=== PATIENT | male | born 1940 | race Caucasian/White ===

== ENCOUNTER 2017-01-09 12:59 | Observation (INO) ==
--- NOTE | 2017-01-09 13:31 | Emergency Department Note ---
Disposition Clinical Impression: Congestive heart failure Qualifiers: Congestive heart failure type: unspecified congestive heart failure type Congestive heart failure chronicity: acute on chronic Qualified Code(s): I50.9 - Heart failure, unspecified Disposition: Admitted As Inpatient Condition: Good Referrals: Marlon Mott MD [Primary Care Provider] - Forms: ED Satisfaction Letter SOB HPI - General Chief Complaint: ED Shortness of Breath/Dyspnea Stated Complaint: per , "bad breathing" Time Seen by Provider: 01/09/17 13:01 Source: patient Mode of arrival: private vehicle Limitations: no limitations Nursing Notes Reviewed: Yes Vital Signs Reviewed: Yes - History of Present Illness 76-year-old male presents for evaluation of shortness of breath. Patient states that he was unable to sleep last night because when lying down he was unable to breathe. Patient was seen in the emergency department yesterday complaining of anxiety and shortness of breath. Patient states that he has had leg swelling. He also has a history of kidney disease. He denies any chest pain. States no cough. Denies any fever or chills. He has prior history of congestive heart failure, mitral valve replacement, atrial fibrillation, cardiomyopathy and is scheduled for a pacemaker next week. - Related Data Home Medications Medication Instructions Recorded Confirmed Finasteride [Proscar] 5 mg PO DAILY 12/03/14 01/08/17 Furosemide [Lasix] 80 mg PO DAILY 12/03/14 01/08/17 Potassium Citrate [Urocit-K] 20 meq PO DAILY 12/03/14 01/08/17 Tamsulosin [Flomax] 0.4 mg PO DAILY 12/03/14 01/08/17 Ferrous Gluconate 325 mg PO DAILY 01/17/15 01/08/17 Ipratropium/Albuterol Sulfate 4 gm IH PRN PRN 10/30/15 01/08/17 [Combivent Respimat Inhal [place]] Warfarin [Coumadin] 3 mg PO DAILY 03/12/16 01/08/17 Montelukast [Singulair] 10 mg PO DAILY 12/27/16 01/08/17 Ergocalciferol (VITAMIN D2) 50,000 unit PO QWEEK 12/28/16 01/08/17 [Vitamin D2] Metoprolol XL (24 HR) Succ [Toprol 50 mg PO DAILY PRN 12/28/16 01/08/17 Xl] traZODone [TraZODone] 50 mg PO HS 12/28/16 01/08/17 Previous Rx's Medication Instructions Recorded Nitroglycerin 0.4 mg SL Q5MIN PRN #20 tab.subl 08/02/15 Aspirin Enteric Coated [Aspirin EC] 81 mg PO DAILY tablet. 12/29/16 Cholecalciferol (D-3) [Vitamin D] 1,000 unit PO QWEEK tablet 12/29/16 Allergies Allergy/AdvReac Type Severity Reaction Status Date / Time Amoxicillin Allergy Difficulty Verified 01/08/17 23:25 Breathing metronidazole [From Flagyl] Allergy Rash Verified 01/08/17 23:25 sulfamethoxazole Allergy Rash Verified 01/08/17 23:25 [From Bactrim] trimethoprim [From Bactrim] Allergy Rash Verified 01/08/17 23:25 Review of Systems: Constitutional: [Negative for fever and chills.] HENT: [Negative for congestion.] Eyes: [Negative for discharge.] Respiratory: See history of present illness Cardiovascular: See history of present illness Gastrointestinal: [Negative for nausea, vomiting, abdominal pain and diarrhea.] Endocrine: [Negative for excessive thirst,urination] Genitourinary: [Negative for dysuria and frequency.] Musculoskeletal: [Negative for myalgias and arthralgias.] Skin: [Negative for rash.] Neurological: [Negative for dizziness, localized weakness and headaches.] Psychiatric/Behavioral: [Negative for nervous/anxious.] All other systems reviewed and are negative. Past Medical History - Past Medical History Attestation: Yes The following information was validated with the patient. Source: patient Medical history: Reports: aortic aneurysm (Thoracic), arthritis, atrial fibrillation (Paroxysmal), cardiomyopathy, CHF, COPD, GERD, hyperlipidemia, hypertension, kidney stones, osteoporosis, peripheral artery disease, renal disease, thyroid disease, valvular heart disease, other Surgical history: Reports: heart valve replacement, herniorrhaphy, vascular surgery Psychiatric history: Reports: anxiety - Social History Smoking Status: Never smoker Smokeless Tobacco Status: No Alcohol use: Reports: none Drug use: Reports: none Physical Exam Constitutional: Patient is drowsy, elderly, mildly tachypneic and cooperative. . The patient appears, [nontoxic], and [does not appear ill]. HENT: Head: Normocephalic and atraumatic. Right Ear: External ear normal. Left Ear: External ear normal. Nose: Nose normal. Mouth/Throat: Oropharynx is clear and mucous membranes show [good hydration.] Eyes: Conjunctivae and EOM are normal. Pupils are equal, round, and reactive to light. Right eye exhibits [no] discharge. Left eye exhibits [no] discharge. Neck: Trachea is midline, normal range of motion and [phonation normal]. Neck supple. Cardiovascular: [Regular rhythm], S1 normal, S2 normal, normal heart sounds and intact distal pulses. Exam reveals no gallop and no friction rub. No murmur heard. [Capillary refill is brisk.] [Peripheral pulses are 2+] Pulmonary/Chest: Effort increased No stridor. Mild tachypnea. [No] respiratory distress. There are decreased breath sounds. Breath sounds are difficult to hear with no obvious rales rhonchi or wheezes appreciated Abdominal: Soft. [Bowel sounds are normal]. There exhibits [no] distension and [no] mass. There is no hepatosplenomegaly. There is [no tenderness], [no] CVA tenderness. There is [no rigidity, no rebound, no guarding]. Musculoskeletal: Normal range of motion of uninvolved extremities. There exhibits 3+ pitting edema. [ ] Neurological: Patient is alert. Patient displays no atrophy and no tremor. No cranial nerve deficit and exhibits normal muscle tone. Coordination normal grossly. Skin: Skin is warm and dry. No erythema. No rash noted. Psychiatric: Patient has a normal mood and affect. 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 Patient was discussed with Dr. Luke, hospitalist, who will accept the patient here at [facility] with Lasix every 6 hours overnight. Vital Signs Temperature 97.8 F 01/09/17 13:05 Pulse Rate 86 01/09/17 13:05 Respiratory Rate 18 01/09/17 13:05 Blood Pressure 110/97 01/09/17 13:05 O2 Sat by Pulse Oximetry 100 01/09/17 13:05 Temperature 97.8 F 01/09/17 13:05 Pulse Rate 86 01/09/17 13:05 Respiratory Rate 18 01/09/17 13:05 Blood Pressure 110/97 01/09/17 13:05 O2 Sat by Pulse Oximetry 100 10/19/17 13:05 Oxygen Delivery Oxygen Delivery Room Air Shortness of Breath/Dyspnea - Differential Diagnosis Likely: congestive heart failure - Lab Data Lab results reviewed: Yes I reviewed the patient's lab results. Result diagrams: 01/09/17 13:28 01/09/17 13:28 Lab Results 01/09/17 01/09/17 01/09/17 Range/Units 13:28 13:28 13:28 WBC 7.4 (4.3-11.1) K/mcL RBC 4.27 (4.19-5.50) M/mcL Hgb 11.4 L (12.9-16.9) g/dL Hct 35.9 L (37.5-50.1) % MCV 84.1 (83.0-100.0) fL MCH 26.7 L (28.0-33.3) pg MCHC 31.8 (31.6-35.5) g/dL RDW 16.6 H (11.5-14.5) % Plt Count 178 (140-400) K/mcL MPV 11.7 (9.4-12.4) fL Immature Gran % 0.5 (0-4) % Seg Neutrophils % 76.4 % Lymphocytes % 13.5 % Monocytes % 8.4 % Eosinophils % 0.8 % Basophils % 0.4 % Neutrophils # 5.7 (1.6-8.9) K/mcL Lymphocytes # 1.0 (0.6-4.6) K/mcL Monocytes # 0.6 (0.0-1.3) K/mcL Eosinophils # 0.1 (0.0-0.6) K/mcL Basophils # 0.0 (0.0-0.2) K/mcL ABG pH (7.32-7.45) pH Units ABG pCO2 (35-45) mmHg ABG pO2 (85-104) mmHg ABG HCO3 (21-27) mEq/L ABG Total CO2 (20-26) mEq/L ABG O2 Saturation (95-98) % ABG Base Excess (-2 to 3) mEq/L Sodium 141 (136-145) mEq/L Potassium 4.2 (3.5-4.5) mEq/L Chloride 104 (98-109) mEq/L Carbon Dioxide 29 (19-29) mEq/L BUN 46 H (8-26) mg/dL Creatinine 2.58 H (0.72-1.25) mg/dL Est GFR ( Amer) 29 L (> 60) Est GFR (Non-Af Amer) 24 L (> 60) BUN/Creatinine Ratio 18 (6-26) Glucose 96 (70-99) mg/dL Calculated Osmolality 304 H (280-300) Lactic Acid (0.5-2.2) mmol/L Calcium 9.2 (8.6-10.8) mg/dL Total Bilirubin 0.6 (0.2-1.2) mg/dL Direct Bilirubin 0.3 (0.0-0.5) mg/dL Indirect Bilirubin 0.3 (0.0-1.2) mg/dL AST 19 (5-34) Units/L ALT 14 (0-55) Units/L Alkaline Phosphatase 102 (38-126) Units/L Troponin I 0.05 H* (0-0.03) ng/mL B-Natriuretic Peptide (0-100) pg/mL Serum Total Protein 6.6 (6.0-8.3) g/dL Albumin 3.1 L (3.5-5.0) g/dL Globulin 3.5 (2.4-3.5) g/dL Albumin/Globulin Ratio 0.9 L (1.1-2.2) 01/09/17 01/09/17 01/09/17 Range/Units 13:28 14:06 14:10 WBC (4.3-11.1) K/mcL RBC (4.19-5.50) M/mcL Hgb (12.9-16.9) g/dL Hct (37.5-50.1) % MCV (83.0-100.0) fL MCH (28.0-33.3) pg MCHC (31.6-35.5) g/dL RDW (11.5-14.5) % Plt Count (140-400) K/mcL MPV (9.4-12.4) fL Immature Gran % (0-4) % Seg Neutrophils % % Lymphocytes % % Monocytes % % Eosinophils % % Basophils % % Neutrophils # (1.6-8.9) K/mcL Lymphocytes # (0.6-4.6) K/mcL Monocytes # (0.0-1.3) K/mcL Eosinophils # (0.0-0.6) K/mcL Basophils # (0.0-0.2) K/mcL ABG pH 7.44 (7.32-7.45) pH Units ABG pCO2 43 (35-45) mmHg ABG pO2 124 H (85-104) mmHg ABG HCO3 29 H (21-27) mEq/L ABG Total CO2 31 H (20-26) mEq/L ABG O2 Saturation 99 H (95-98) % ABG Base Excess 4 H (-2 to 3) mEq/L Sodium (136-145) mEq/L Potassium (3.5-4.5) mEq/L Chloride (98-109) mEq/L Carbon Dioxide (19-29) mEq/L BUN (8-26) mg/dL Creatinine (0.72-1.25) mg/dL Est GFR ( Amer) (> 60) Est GFR (Non-Af Amer) (> 60) BUN/Creatinine Ratio (6-26) Glucose (70-99) mg/dL Calculated Osmolality (280-300) Lactic Acid 0.8 (0.5-2.2) mmol/L Calcium (8.6-10.8) mg/dL Total Bilirubin (0.2-1.2) mg/dL Direct Bilirubin (0.0-0.5) mg/dL Indirect Bilirubin (0.0-1.2) mg/dL AST (5-34) Units/L ALT (0-55) Units/L Alkaline Phosphatase (38-126) Units/L Troponin I (0-0.03) ng/mL B-Natriuretic Peptide 3824 H (0-100) pg/mL Serum Total Protein (6.0-8.3) g/dL Albumin (3.5-5.0) g/dL Globulin (2.4-3.5) g/dL Albumin/Globulin Ratio (1.1-2.2) - Radiology Data Radiology results reviewed: Yes I reviewed the patient's radiology results. - EKG Data EKG attestation: Yes I reviewed and interpreted this EKG. EKG results narrative: I have contemporaneously read the EKG which has the following findings: Rhythm atrial fibrillation Rate 91 [place] left Ectopy none Impression atrial fibrillation with controlled ventricular response, nonspecific ST segment changes
[2017-01-09 13:53] LABS: Basophils % 0.4 %; Eosinophils # 0.1 K/mcL (0.0-0.6); Eosinophils % 0.8 %; Hematocrit 35.9 % (37.5-50.1); Hemoglobin 11.4 g/dL (12.9-16.9); Immature Granulocytes % 0.5 % (0-4); Lymphocytes % 13.5 %; Mean Corpuscular HGB Conc 31.8 g/dL (31.6-35.5); Mean Corpuscular Hemoglobin 26.7 pg (28.0-33.3); Mean Corpuscular Volume 84.1 fL (83.0-100.0); Mean Platelet Volume 11.7 fL (9.4-12.4); Monocytes # 0.6 K/mcL (0.0-1.3); Monocytes % 8.4 %; Neutrophils # 5.7 K/mcL (1.6-8.9); Platelet Count 178 K/mcL (140-400); Red Blood Count 4.27 M/mcL (4.19-5.50); Red Cell Distribution Width 16.6 % (11.5-14.5); Segmented Neutrophils % 76.4 %
[2017-01-09 14:08] LABS: Albumin 3.1 g/dL (3.5-5.0); Albumin/Globulin Ratio 0.9 (1.1-2.2); Bilirubin,Direct 0.3 mg/dL (0.0-0.5); Bilirubin,Indirect 0.3 mg/dL (0.0-1.2); Bilirubin,Total 0.6 mg/dL (0.2-1.2); Calcium 9.2 mg/dL (8.6-10.8); Globulin 3.5 g/dL (2.4-3.5); Potassium 4.2 mEq/L (3.5-4.5); Total Protein 6.6 g/dL (6.0-8.3)
[2017-01-09 14:24] LABS: ABG Base Excess 4 mEq/L (-2 to 3); ABG HCO3 29 mEq/L (21-27); ABG Oxygen Saturation 99 % (95-98); ABG PCO2 43 mmHg (35-45); ABG PH 7.44 pH Units (7.32-7.45); ABG PO2 124 mmHg (85-104); ABG TCO2 31 mEq/L (20-26)
[2017-01-09] MEDS ORDERED: Furosemide 40 MG/4 ML VIAL IVP ONE (14:27)
--- NOTE | 2017-01-09 15:48 | Electrocardiograph Report ---
[place] [id number] Test Date: 2017-01-09 Pat Name: Tarun Mitchell Department: 2000 Room: Gender: M System Support Developer: : 1940 Requested By: Tarun Soares Order Number: [id number] Reading MD: David Keen Measurements Intervals [place] Rate: 91 P: HI: 0 QRS: -74 QRSD: 130 T: 93 QT: 413 QTc: 462 Interpretive Statements ATRIAL FIBRILLATION POSSIBLE ANTERIOR MYOCARDIAL INFARCTION, OF INDETERMINATE AGE INFERIOR MYOCARDIAL INFARCTION, PROBABLY OLD Electronically Signed On 01-09-2017 15:46:46 EDT by David Keen
[2017-01-09] MEDS ORDERED: Nitroglycerin 0.4 MG TAB.SUBL SL PRN (15:55)
[2017-01-09] MEDS ORDERED: Metoprolol XL (24 HR) Succ 50 MG TAB.ER.24H PO PRN (15:55)
[2017-01-09] MEDS ORDERED: NON-FORMULARY MEDICATION 1 EACH EACH (Ipratropium/Albuterol Sulfate [Combivent Respimat In IH PRN (15:55)
[2017-01-09] MEDS ORDERED: Cholecalciferol (D-3) 1,000 UNIT TABLET PO SCH (16:00)
[2017-01-09] MEDS ORDERED: Ipratropium/Albuterol Neb 3 ML IH PRN (17:28)
[2017-01-09] MEDS: *HR* Warfarin 3 MG TABLET PO SCH (17:46)
[2017-01-09] MEDS: Furosemide 40 MG/4 ML VIAL IVP SCH (21:08)
[2017-01-09] MEDS: traZODone 50 MG TABLET PO SCH (21:08)
[2017-01-10] MEDS: Furosemide 40 MG/4 ML VIAL IVP SCH ×4 (01:59→21:04)
[2017-01-10 05:32] LABS: Basophils # 0.1 K/mcL (0.0-0.2); Basophils % 0.7 %; Eosinophils # 0.1 K/mcL (0.0-0.6); Eosinophils % 1.4 %; Hematocrit 34.9 % (37.5-50.1); Hemoglobin 11.1 g/dL (12.9-16.9); Immature Granulocytes % 0.4 % (0-4); Lymphocytes # 1.3 K/mcL (0.6-4.6); Mean Corpuscular HGB Conc 31.8 g/dL (31.6-35.5); Mean Corpuscular Hemoglobin 26.6 pg (28.0-33.3); Mean Corpuscular Volume 83.7 fL (83.0-100.0); Mean Platelet Volume 10.3 fL (9.4-12.4); Monocytes # 0.7 K/mcL (0.0-1.3); Monocytes % 9.4 %; Neutrophils # 5.2 K/mcL (1.6-8.9); Platelet Count 166 K/mcL (140-400); Red Blood Count 4.17 M/mcL (4.19-5.50); Red Cell Distribution Width 16.4 % (11.5-14.5); Segmented Neutrophils % 70.1 %
[2017-01-10 05:37] LABS: INR 2.7; Prothrombin Time 30.2 Seconds (9.4-12.1)
[2017-01-10 05:46] LABS: Calcium 9.2 mg/dL (8.6-10.8); Potassium 4.2 mEq/L (3.5-4.5)
[2017-01-10] MEDS: Aspirin Enteric Coated 81 MG Tablet PO SCH (08:06)
[2017-01-10] MEDS: *HR* Warfarin 3 MG TABLET PO SCH (08:06)
[2017-01-10] MEDS: Potassium Citrate 10 MEQ TABLET.ER PO SCH (08:06)
[2017-01-10] MEDS: Finasteride 5 MG TABLET PO SCH (08:06)
--- NOTE | 2017-01-10 13:14 | Internal Med History&Physical ---
<Zana Luke S - Last Filed: 01/10/17 13:11> Date of Encounter: 01/10/17 Time of Encounter: 13:11 Assessment and Plan (1) Systolic CHF, chronic Current visit: Yes Status: Chronic Patient came in for shortness of breath but tells me that he feels better this morning. Because of him being incontinent of urine idle hollow volume number however he has had frequent wet chocks-type dressings. (2) Atrial fibrillation Current visit: No Status: Acute Noted irregularly irregular heartbeat Qualifiers: Atrial fibrillation type: chronic Qualified Code(s): I48.2 - Chronic atrial fibrillation (3) Dyspnea Current visit: Yes Status: Acute Patient presented with shortness of breath but states he is better today. Qualifiers: Dyspnea type: orthopnea Qualified Code(s): R06.01 - Orthopnea (4) Chronic renal insufficiency Current visit: No Status: Acute Noted not sure there is much change Qualifiers: Chronic kidney disease stage: stage 3 (moderate) Qualified Code(s): N18.3 - Chronic kidney disease, stage 3 (moderate) (5) CHF (congestive heart failure), NYHA class III Current visit: No Status: Chronic Noted. As ejection fraction 10-15%. Qualifiers: Congestive heart failure type: combined Congestive heart failure chronicity : chronic Qualified Code(s): I50.42 - Chronic combined systolic (congestive) and diastolic (congestive) heart failure Internal Medicine - H&P: HPI Chief complaint: Shortness of breath Admitted From: Emergency Dept Plans for Post Hospital Care: Home History of present illness: Mr. Mitchell is a 76 year old male 4.4 hours prior to presentation the patient was unable to sleep or lie down. He is getting more short of breath so he obviously had orthopnea Past Med Surg Social Fam HX - Past Medical History Medical history: aortic aneurysm, arthritis, atrial fibrillation, cardiomyopathy , CHF (Patient was noted to have an ejection fraction of 50%.), COPD, GERD, hyperlipidemia, hypertension, kidney stones, osteoporosis, peripheral artery disease, renal disease, thyroid disease, valvular heart disease, other Psychiatric history: anxiety - Past Surgical History Surgical History: heart valve replacement, herniorrhaphy, vascular surgery - Social History Smoking Status: Never smoker Smokeless Tobacco Status: No Alcohol use: none Drug use: none - Family History Daughter Adopted: No Family Member Ethnicity: Non- Living Status: Still Living Hx Family Cardiac Disorders: No Hx Family Respiratory Disorders: No Hx Family Cancer: No Hx Family GI Disorders: No Hx Family Endocrine Disorder: No Hx Family Neuromuscular Disorders: No Hx Family Neurologic Disorders: No Hx Family HEENT Disorders: No Hx Family Autoimmune Disorders: No Mother Adopted: No Living Status: Hx Family Cardiac Disorders: No Hx Family Respiratory Disorders: No Hx Family Cancer: No Hx Family GI Disorders: Yes (bleeding ulcer) Hx Family Endocrine Disorder: No Hx Family Neuromuscular Disorders: No Hx Family Neurologic Disorders: No Hx Family HEENT Disorders: No Hx Family Autoimmune Disorders: No Father Adopted: No Living Status: Hx Family Cardiac Disorders: No Hx Family Respiratory Disorders: Yes (Emphysema) Hx Family Cancer: No Hx Family GI Disorders: No Hx Family Endocrine Disorder: No Hx Family Neuromuscular Disorders: No Hx Family Neurologic Disorders: No Hx Family HEENT Disorders: No Hx Family Autoimmune Disorders: No Sister Adopted: No Living Status: Hx Family Cardiac Disorders: No Hx Family Respiratory Disorders: Yes (pneumonia) Hx Family Cancer: No Hx Family GI Disorders: No Hx Family Endocrine Disorder: No Hx Family Neuromuscular Disorders: No Hx Family Neurologic Disorders: No Hx Family HEENT Disorders: No Hx Family Autoimmune Disorders: No Internal Medicine - H&P: Meds Finasteride [Proscar] 5 mg PO DAILY 12/03/14 [History] Furosemide [Lasix] 80 mg PO DAILY 12/03/14 [History] Potassium Citrate [Urocit-K] 20 meq PO DAILY 12/03/14 [History] Tamsulosin [Flomax] 0.4 mg PO DAILY 12/03/14 [History] Ferrous Gluconate 325 mg PO DAILY 01/17/15 [History] Nitroglycerin 0.4 mg SL Q5MIN PRN #20 tab.subl 08/02/15 [Rx] Warfarin [Coumadin] 3 mg PO DAILY 03/12/16 [History] Montelukast [Singulair] 10 mg PO DAILY 12/27/16 [History] Metoprolol XL (24 HR) Succ [Toprol Xl] 50 mg PO DAILY PRN 12/28/16 [History] traZODone [TraZODone] 50 mg PO HS 12/28/16 [History] Aspirin Enteric Coated [Aspirin EC] 81 mg PO DAILY tablet. 12/29/16 [Rx] Cholecalciferol (D-3) [Vitamin D] 1,000 unit PO QWEEK tablet 12/29/16 [Rx] Cefdinir [Omnicef] 300 mg PO BID 01/09/17 [History] 3 Allergy/AdvReac Type Severity Reaction Status Date / Time Amoxicillin Allergy Difficulty Verified 01/08/17 23:25 Breathing metronidazole [From Flagyl] Allergy Rash Verified 01/08/17 23:25 sulfamethoxazole Allergy Rash Verified 01/08/17 23:25 [From Bactrim] trimethoprim [From Bactrim] Allergy Rash Verified 01/08/17 23:25 All Systems PM: A 10-system review of systems was performed and is negative for pertinent findings except as documented above in the HPI. - Constitutional Vitals: Temp Pulse Resp BP Pulse Ox 97.2 F L 79 16 115/64 97 01/10/17 12:02 01/10/17 12:02 01/10/17 12:02 01/10/17 12:02 01/10/17 12:02 - Head Head exam: Present: atraumatic, normal inspection, normocephalic - Neck Neck exam general surgery: Present: supple, trachea midline. Absent: lymphadenopathy - Respiratory Respiratory exam: Present: CTAB. Absent: accessory muscle use, rales, rhonchi, wheezes Additional comments: Patient has bibasilar rales - Cardiovascular Cardiovascular exam: Present: irregular rhythm, RRR, +S1, +S2. Absent: diastolic murmur, gallop, rubs, systolic murmur Additional comments: She has a irregularly irregular rhythm - GI/Abdominal GI/Abdominal exam: Present: normal bowel sounds, soft, no peritoneal signs. Absent: distended, tenderness Internal Med - H&P Results - Labs CBC & Chem 7: 01/10/17 05:25 01/10/17 05:25 Labs: Short CBC 01/10/17 Range/Units 05:25 WBC 7.4 (4.3-11.1) K/mcL Hgb 11.1 L (12.9-16.9) g/dL Hct 34.9 L (37.5-50.1) % Plt Count 166 (140-400) K/mcL Neutrophils # 5.2 (1.6-8.9) K/mcL BMP 01/10/17 05:25 Sodium 144 Potassium 4.2 Chloride 103 Carbon Dioxide 31 H BUN 49 H Creatinine 2.75 H Glucose 91 Calcium 9.2 Cardiac Enzymes 01/09/17 Range/Units 19:12 Troponin I <= 0.04 (0-0.04) ng/mL Chronic kidney changes are noted. Troponin was negative although the patient has a history of chronic elevated troponins. B natruretic peptide is greater than 3000 - Impressions ITS Impressions Chest X-Ray 01/10/17 07:00 IMPRESSION: New patchy airspace disease in the right mid to upper lung field. Remainder of the chest is unchanged. D/ / 01/10/2017 07:20:34 Zachery Collins MD / taj Interpreting Provider: Zachery Collins MD - VTE Reasons for not Prescribing Prophylaxis: Not indicated-Anticoagulated or INR therapeutic <Rayshawn Rosales - Last Filed: 01/10/17 14:05> Date of Encounter: 01/10/17 Internal Medicine - H&P: HPI History of present illness: Mr. Mitchell is a 76 year old male All Systems PM: A 10-system review of systems was performed and is negative for pertinent findings except as documented above in the HPI. - EENT Nose, mouth and throat: no change in voice, no dysphagia - Cardiovascular Cardiovascular ROS IM: no chest pain, no diaphoresis, no dyspnea, no dyspnea on exertion - Respiratory Respiratory: no cough, no dyspnea - Gastrointestinal Gastrointestinal: no abdominal pain, no nausea, no vomiting - Constitutional Vitals: Temp Pulse Resp BP Pulse Ox 97.2 F L 79 16 115/64 97 01/10/17 12:02 01/10/17 12:02 01/10/17 12:02 01/10/17 12:02 01/10/17 12:02 - Eye Eye exam: Present: EOMI, normal appearance. Absent: nystagmus, periorbital tenderness Internal Med - H&P Results - Labs CBC & Chem 7: 01/10/17 05:25 01/10/17 05:25 Labs: Short CBC 01/10/17 Range/Units 05:25 WBC 7.4 (4.3-11.1) K/mcL Hgb 11.1 L (12.9-16.9) g/dL Hct 34.9 L (37.5-50.1) % Plt Count 166 (140-400) K/mcL Neutrophils # 5.2 (1.6-8.9) K/mcL BMP 01/10/17 05:25 Sodium 144 Potassium 4.2 Chloride 103 Carbon Dioxide 31 H BUN 49 H Creatinine 2.75 H Glucose 91 Calcium 9.2 Cardiac Enzymes 01/09/17 Range/Units 19:12 Troponin I <= 0.04 (0-0.04) ng/mL - Impressions ITS Impressions Chest X-Ray 01/10/17 07:00 IMPRESSION: New patchy airspace disease in the right mid to upper lung field. Remainder of the chest is unchanged. D/ / 01/10/2017 07:20:34 Zachery Collins MD / [email or web address] Interpreting Provider: Zachery Collins MD
[2017-01-10 18:21] LABS: Calcium 8.9 mg/dL (8.6-10.8); Potassium 4.2 mEq/L (3.5-4.5)
[2017-01-10] MEDS: traZODone 50 MG TABLET PO SCH (21:04)
[2017-01-11] MEDS: Furosemide 40 MG/4 ML VIAL IVP SCH ×3 (02:52→17:52)
[2017-01-11 06:01] LABS: INR 3.1; Prothrombin Time 34.1 Seconds (9.4-12.1)
[2017-01-11 06:14] LABS: Calcium 9.1 mg/dL (8.6-10.8); Potassium 4.5 mEq/L (3.5-4.5)
[2017-01-11] MEDS: *HR* Warfarin 3 MG TABLET PO SCH (07:58)
[2017-01-11] MEDS: Potassium Citrate 10 MEQ TABLET.ER PO SCH (07:58)
[2017-01-11] MEDS: Metoprolol XL (24 HR) Succ 50 MG TAB.ER.24H PO SCH (07:58)
[2017-01-11] MEDS: Finasteride 5 MG TABLET PO SCH (07:58)
[2017-01-11] MEDS: Aspirin Enteric Coated 81 MG Tablet PO SCH (07:59)
--- NOTE | 2017-01-11 10:19 | Internal Med Progress Note ---
Date of Encounter: 01/11/17 Time of Encounter: 09:45 - Assessment and plan (1) Systolic CHF, chronic Current Visit: Yes Status: Chronic Assessment and plan: Seems to be imroving yet he is develooping a little contraction alkalosis and azotemia is apparenly stable but on frequent IV Lasix. Will curtail IV lasix slightliy in hopes to convert to oral soon. Will check magnesium level as potential for loss with Lasix. Explained we need to make sure safety for home going before he leaves. He seems to accept. (2) Atrial fibrillation Current Visit: No Status: Acute Assessment and plan: Stable on current regimen. INR was fine two days ao (2.7). Qualifiers: Atrial fibrillation type: chronic Qualified Code(s): I48.2 - Chronic atrial fibrillation (3) Chronic renal insufficiency Current Visit: No Status: Acute Assessment and plan: Samuel continue to follow, given his multiple medications and IV Lasix. Qualifiers: Chronic kidney disease stage: stage 3 (moderate) Qualified Code(s): N18.3 - Chronic kidney disease, stage 3 (moderate) (4) Dyspnea Current Visit: Yes Status: Acute Assessment and plan: Improved markedly. Qualifiers: Dyspnea type: orthopnea Qualified Code(s): R06.01 - Orthopnea - Subjective Interval history: Doing well, wants to know when he can go hoe. Has had frequent "charley horses" that are relieved when he stands out of bed. No other pains related. Bowel and bladder function have been fine. Denies dyspnea, chest pain, pressure, or tightness, diaphoresis, nausea or abdominal pain, leg pain, etc. - Constitutional Vitals: Temp Pulse Resp BP Pulse Ox 97.9 F 70 16 120/68 95 01/11/17 06:58 01/11/17 06:58 01/11/17 06:58 01/11/17 06:58 01/11/17 06:58 General appearance: Present: A&O X 3, pleasant, no acute distress, answers questions appropriately - Head Head exam: Present: atraumatic, normocephalic - Eye Eye exam: Present: EOMI, PERRL, conjuntiva pink, sclera anicteric. Absent: conjunctival injection Pupils: Present: PERRL - ENT ENT exam: Present: mucous membranes moist - Neck Neck exam general surgery: Present: full ROM, supple, trachea midline - Respiratory Respiratory exam: Present: CTAB. Absent: accessory muscle use, rales, rhonchi, wheezes - Cardiovascular Cardiovascular exam: Present: irregular rhythm. Absent: diastolic murmur, gallop, rubs, systolic murmur Additional comments: Irregularly irregular consistent with atrial fibrillatio. - GI/Abdominal GI/Abdominal exam: Present: normal bowel sounds, soft, no peritoneal signs. Absent: distended, tenderness - Extremities Exam Extremities exam: Present: pedal edema, warm, radial pulses palpable and symmetrical. Absent: calf tenderness, cyanotic Additional comments: Still with 1+ edema at feet especially dorsae and left more than right - Skin Skin exam: Present: dry, intact. Absent: diaphoretic Internal Medicine: Result - Labs CBC & Chem 7: 01/10/17 05:25 01/11/17 05:30 Labs: BMP 01/10/17 01/11/17 17:57 05:30 Sodium 142 144 Potassium 4.2 4.5 Chloride 101 102 Carbon Dioxide 31 H 34 H BUN 51 H 50 H Creatinine 2.85 H 2.79 H Glucose 149 H 77 Calcium 8.9 9.1 - ABG Interpretation ABG results: ABG ABG pH 7.44 pH Units (7.32-7.45) 01/09/17 14:06 ABG pCO2 43 mmHg (35-45) 01/09/17 14:06 ABG pO2 124 mmHg (85-104) H 01/09/17 14:06 ABG O2 Saturation 99 % (95-98) H 01/09/17 14:06 PT/INR, D-dimer PT 34.1 Seconds (9.4-12.1) H 01/11/17 05:30 - Impressions Impressions Chest X-Ray 01/11/17 06:00 IMPRESSION: No change. D/ / Ottoniel Rosario MD / Ottoniel Rosario MD Interpreting Provider: Ottoniel Rosario MD - VTE Reasons for not Prescribing Prophylaxis: Not indicated-Anticoagulated or INR therapeutic Consult Discharge Plan - Plan Referrals: Marlon Mott MD [Primary Care Provider] -
[2017-01-11] MEDS: traZODone 50 MG TABLET PO SCH (21:56)
[2017-01-12 05:22] LABS: INR 2.5; Prothrombin Time 27.6 Seconds (9.4-12.1)
[2017-01-12] MEDS: Potassium Citrate 10 MEQ TABLET.ER PO SCH (08:30)
[2017-01-12] MEDS: Finasteride 5 MG TABLET PO SCH (08:30)
[2017-01-12] MEDS: *HR* Warfarin 2.5 MG TABLET PO SCH (08:30)
[2017-01-12] MEDS: Metoprolol XL (24 HR) Succ 50 MG TAB.ER.24H PO SCH (08:30)
[2017-01-12] MEDS: Furosemide 40 MG/4 ML VIAL IVP SCH (08:31)
[2017-01-12] MEDS: Aspirin Enteric Coated 81 MG Tablet PO SCH (08:31)
--- NOTE | 2017-01-12 15:22 | Internal Med Progress Note ---
Date of Encounter: 01/12/17 Time of Encounter: 15:25 - Assessment and plan (1) Systolic CHF, chronic Current Visit: Yes Status: Chronic Assessment and plan: Discussed at length with patient, , and daugher, answered questions. There is minimal change vs. yesterday so will continue to follow. I deferred discharge decision to Dr. Luke in terms of CHF labs, findings, and azotemia. Unfortunately, I thought BMP was scheduled for today, so will need to order for tomorrow. Will try o change to roal Laxis and follow. If tolerated, could go home. (2) Atrial fibrillation Current Visit: No Status: Acute Assessment and plan: Stable on current regimen. They asked about availability to go to pacemaker insertion on . I deferred this to clinical course and senior physical therapist, Dr. Keen. Qualifiers: Atrial fibrillation type: chronic Qualified Code(s): I48.2 - Chronic atrial fibrillation (3) Chronic renal insufficiency Current Visit: No Status: Acute Assessment and plan: Samuel continue to follow, given his multiple medications and IV Lasix. Qualifiers: Chronic kidney disease stage: stage 3 (moderate) Qualified Code(s): N18.3 - Chronic kidney disease, stage 3 (moderate) (4) Dyspnea Current Visit: Yes Status: Acute Assessment and plan: Stable vs. yesterday. Qualifiers: Dyspnea type: orthopnea Qualified Code(s): R06.01 - Orthopnea (5) Foot pain, left Current Visit: Yes Status: Acute Assessment and plan: Will check epiric X-ray and follow. (6) Chest wall pain Current Visit: Yes Status: Acute Assessment and plan: Advised topical ice and notify staff if no resolution by tomorrow. - Time Spent With Patient 25 - 35 minutes - Subjective Interval history: Doing well,but with neew compolaint of left foot pain and left lower chest pain. No known traumawith fall and no other inciting eents. Minimal cough, not severre or persistent. "Ccharley horses" have resolved. Bowel and bladder function have been fine. Denies dyspnea, chest pain, pressure, or tightness, diaphoresis, nausea or abdominal pain, leg pain, etc. - Constitutional Vitals: Temp Pulse Resp BP Pulse Ox 97.8 F 74 16 109/64 100 01/12/17 11:34 01/12/17 11:34 01/12/17 11:34 01/12/17 11:34 01/12/17 11:34 General appearance: Present: A&O X 3, pleasant, no acute distress, answers questions appropriately - Head Head exam: Present: atraumatic, normocephalic - Eye Eye exam: Present: PERRL, conjuntiva pink, sclera anicteric. Absent: conjunctival injection Pupils: Present: PERRL - Neck Neck exam general surgery: Present: supple, trachea midline - Respiratory Respiratory exam: Present: CTAB. Absent: accessory muscle use, rales, rhonchi, wheezes Additional comments: Exquisitely tender at the left anterior axillary line at about Rib #9, no deformity and may be at costochondral junction. - Cardiovascular Cardiovascular exam: Absent: diastolic murmur, gallop, rubs, systolic murmur Additional comments: Irregularly irregular wih pattern consistent with atrial fibrillation. - GI/Abdominal GI/Abdominal exam: Present: normal bowel sounds, soft, no peritoneal signs. Absent: distended, tenderness - Extremities Exam Extremities exam: Present: pedal edema, warm, radial pulses palpable and symmetrical. Absent: calf tenderness, cyanotic Additional comments: Slightly more edema than yesterday at both feet. Left toes #2-5 with tenderness that is rather significant at dorsal area of distal metatarsals' heads. No sign of bruise, wrmth, erythema, etc. Internal Medicine: Result - Labs CBC & Chem 7: 01/10/17 05:25 01/11/17 05:30 - ABG Interpretation ABG results: ABG ABG pH 7.44 pH Units (7.32-7.45) 01/09/17 14:06 ABG pCO2 43 mmHg (35-45) 01/09/17 14:06 ABG pO2 124 mmHg (85-104) H 01/09/17 14:06 ABG O2 Saturation 99 % (95-98) H 01/09/17 14:06 PT/INR, D-dimer PT 27.6 Seconds (9.4-12.1) H 01/12/17 04:50 - VTE Reasons for not Prescribing Prophylaxis: Not indicated-Anticoagulated or INR therapeutic Consult Discharge Plan - Plan Referrals: Marlon Mott MD [Primary Care Provider] -
[2017-01-12] MEDS: Furosemide 40 MG TABLET PO SCH (17:24)
[2017-01-12] MEDS ORDERED: Cholecalciferol (D-3) 1,000 UNIT TABLET PO SCH (18:08)
[2017-01-12] MEDS: traZODone 50 MG TABLET PO SCH (21:54)
[2017-01-12 21:58] LABS: Bilirubin,Urine Negative (Negative); Blood,Urine Large (Negative); Clarity,Urine Slightly Cloudy (Clear); Glucose,Urine (UA) Normal (Normal); Ketones,Urine Negative (Negative); Leukocyte Esterase,Urine Moderate (Negative); Nitrite,Urine Negative (Negative); PH,Urine 6.5 pH Units (5.0-8.0); Protein,Urine 30 mg/dL (Neg-Trace); Specific Gravity,Urine 1.015 (1.010-1.025); Urobilinogen,Urine Normal (Normal)
[2017-01-12 21:59] LABS: Color,Urine Yellow (Yellow)
[2017-01-12 22:00] LABS: Amorphous Sediment,Urine Few (Few); Bacteria,Urine Few per hpf (None-Few); Hyaline Casts,Urine Few per lpf (None-Few)
[2017-01-13 05:47] LABS: INR 2.1; Prothrombin Time 22.9 Seconds (9.4-12.1)
[2017-01-13 05:57] LABS: Calcium 8.8 mg/dL (8.6-10.8); Potassium 4.3 mEq/L (3.5-4.5)
[2017-01-13] MEDS: *HR* Warfarin 2.5 MG TABLET PO SCH (08:14)
[2017-01-13] MEDS: Potassium Citrate 10 MEQ TABLET.ER PO SCH (08:14)
[2017-01-13] MEDS: Finasteride 5 MG TABLET PO SCH (08:15)
[2017-01-13] MEDS: Aspirin Enteric Coated 81 MG Tablet PO SCH (08:15)
[2017-01-13] MEDS: Furosemide 40 MG TABLET PO SCH (08:15)
[2017-01-13] MEDS: Metoprolol XL (24 HR) Succ 50 MG TAB.ER.24H PO SCH (08:15)
[2017-01-13 11:41] VITALS: BP 105/65
--- NOTE | 2017-01-13 13:21 | Discharge Summary ---
Date of Encounter: 01/13/17 Time of Encounter: 13:19 - Discharge Diagnosis (1) Systolic CHF, chronic Priority: Primary Status: Chronic (2) Atrial fibrillation Priority: Secondary Status: Acute Qualifiers: Atrial fibrillation type: chronic Qualified Code(s): I48.2 - Chronic atrial fibrillation (3) Dyspnea Priority: Primary Status: Acute Qualifiers: Dyspnea type: orthopnea Qualified Code(s): R06.01 - Orthopnea (4) Chronic renal insufficiency Priority: Secondary Status: Acute Qualifiers: Chronic kidney disease stage: stage 3 (moderate) Qualified Code(s): N18.3 - Chronic kidney disease, stage 3 (moderate) (5) CHF (congestive heart failure), NYHA class III Priority: Primary Status: Chronic Qualifiers: Congestive heart failure type: combined Congestive heart failure chronicity : chronic Qualified Code(s): I50.42 - Chronic combined systolic (congestive) and diastolic (congestive) heart failure - Discharge Medications Home Medications: Finasteride [Proscar] 5 mg PO DAILY 12/03/14 [History] Furosemide [Lasix] 80 mg PO DAILY 12/03/14 [History] Potassium Citrate [Urocit-K] 20 meq PO DAILY 12/03/14 [History] Tamsulosin [Flomax] 0.4 mg PO DAILY 12/03/14 [History] Ferrous Gluconate 325 mg PO DAILY 01/17/15 [History] Nitroglycerin 0.4 mg SL Q5MIN PRN #20 tab.subl 08/02/15 [Rx] Warfarin [Coumadin] 3 mg PO DAILY 03/12/16 [History] Montelukast [Singulair] 10 mg PO DAILY 12/27/16 [History] Metoprolol XL (24 HR) Succ [Toprol Xl] 50 mg PO DAILY PRN 12/28/16 [History] traZODone [TraZODone] 50 mg PO HS 12/28/16 [History] Aspirin Enteric Coated [Aspirin EC] 81 mg PO DAILY tablet. 12/29/16 [Rx] Cholecalciferol (D-3) [Vitamin D] 1,000 unit PO QWEEK tablet 12/29/16 [Rx] Cefdinir [Omnicef] 300 mg PO BID 01/09/17 [History] Allergies/Adverse Reactions: 3 Allergy/AdvReac Type Severity Reaction Status Date / Time Amoxicillin Allergy Difficulty Verified 01/08/17 23:25 Breathing metronidazole [From Flagyl] Allergy Rash Verified 01/08/17 23:25 sulfamethoxazole Allergy Rash Verified 01/08/17 23:25 [From Bactrim] trimethoprim [From Bactrim] Allergy Rash Verified 01/08/17 23:25 Date of admission: 01/09/17 16:22 Primary care physician: Marlon Mott Discharging clinician: Zana Luke Anticipated date of discharge: 01/13/17 - Patient Status Disposition: Home, Self-Care Functional capacity at discharge: uses cane/walker Overall status at discharge: patient is progressing back to baseline - Discharge Instructions Follow Up With: Marlon Mott MD [Primary Care Provider] - - Diet and Activity Activity: ambulate only with your walker Diet: low salt diet Interval History: Patient presented to the ER 2 days in a row shortness of breath and orthopnea. At an elevated beta Naturetin peptide and off while the chest x-ray did not particularly show CHF is very short of breath. He does have fluid overload and very low ejection fraction Hospital course: Mr. Mitchell is a 76 year old male who was admitted for extreme shortness of breath. He was orthopneic lower extremity edema highly elevated beta natruretic peptide Patient was diuresed was feeling better he was brighter and stated prior to discharge that he felt good - Time Spent with Patient Total time spent providing and/or coordinating discharge services: Less than 30 minutes - Constitutional Vitals: Temp Pulse Resp BP Pulse Ox 98.6 F 76 16 105/65 97 01/13/17 11:40 01/13/17 11:40 01/13/17 11:40 01/13/17 11:40 01/13/17 11:40 General appearance: Present: A&O X 3, pleasant, no acute distress, answers questions appropriately - Head Head exam: Present: normal inspection - Neck Neck exam general surgery: Present: supple, trachea midline. Absent: lymphadenopathy - Respiratory Respiratory exam: Present: decreased breath sounds, CTAB, prolonged expiratory phase. Absent: accessory muscle use, rales, rhonchi, wheezes - Cardiovascular Cardiovascular exam: Present: irregular rhythm, RRR, +S1, +S2. Absent: diastolic murmur, gallop, rubs, systolic murmur - GI/Abdominal GI/Abdominal exam: Present: normal bowel sounds, soft, no peritoneal signs. Absent: distended, tenderness - VTE Reasons for not Prescribing Prophylaxis: Not indicated-Anticoagulated or INR therapeutic
== END 2017-01-13 16:20 | disposition home or self-care (01) ==
LOC: INPGRE 12:59 → EMEROOGRE 12:59 → INPGRE 16:49
PROVIDERS: ADMIT Internal Medicine; ATTEND Internal Medicine

== ENCOUNTER 2018-01-27 14:38 | Observation (INO) ==
--- NOTE | 2018-01-27 15:19 | Emergency Department Note ---
Disposition Clinical Impression: Elevated troponin, Renal failure, Congestive heart failure Disposition: Admitted As Inpatient Condition: Good SOB HPI - General Chief Complaint: ED Shortness of Breath/Dyspnea Stated Complaint: trouble breathing Time Seen by Provider: 01/27/18 15:00 Source: patient Mode of arrival: ambulatory Limitations: no limitations Nursing Notes Reviewed: Yes Vital Signs Reviewed: Yes - History of Present Illness Patient was seen Friday and recommended to be admitted to the hospital because of congestive heart failure. He declined. He was up at the cancer center today and was seen up at [place]. He then came here to be admitted to the hospital. He complains of continued shortness of breath and swelling in his legs. He denies any fevers chills chest pain urinary symptoms diarrhea rashes or other complaints. Pt Subjective Complaint: shortness of breath Onset (ago): day(s) (several days) Severity: moderate Consistency/Duration: constant Improves with: nothing Worsens with: nothing Known history of: congestive heart failure Associated symptoms: Reports: orthopnea. Denies: chest pain, pain with inspiration, fever, cough, wheezing, sputum production, polyuria, polydipsia, parasthesias, palpitations, hemoptysis, diaphoresis, nausea/vomiting, syncope, rash, sense of impending doom Treatment prior to arrival: none - Related Data Home Medications Medication Instructions Recorded Confirmed Montelukast [Singulair] 10 mg PO HS 12/27/16 01/27/18 Finasteride [Proscar] 5 mg PO DAILY 12/12/17 01/27/18 Tamsulosin [Flomax] 0.4 mg PO DAILY 12/13/17 01/27/18 Ipratropium/Albuterol Sulfate 1 puff IH DAILY PRN 12/30/17 01/27/18 [Combivent Respimat 20-100 Mcg] Oxycodone HCl [Roxybond] 5 mg PO Q4H PRN 12/30/17 01/27/18 Spironolactone [Aldactone] 25 mg PO DAILY 12/30/17 01/27/18 Bumetanide [Bumex] 0.5 mg PO Q12HR 01/24/18 01/27/18 Metoprolol XL (24 HR) Succ [Toprol 50 mg PO DAILY 01/27/18 01/27/18 Xl] Warfarin [Coumadin] 2.5 mg PO DAILY 01/27/18 01/27/18 Previous Rx's Medication Instructions Recorded Aspirin Enteric Coated [Aspirin EC] 81 mg PO DAILY tablet. 12/29/16 Ondansetron [Zofran] 4 mg PO Q8HR PRN #10 tablet 01/24/18 Allergies Allergy/AdvReac Type Severity Reaction Status Date / Time Amoxicillin Allergy Difficulty Verified 01/24/18 02:10 Breathing metronidazole [From Flagyl] Allergy Rash Verified 01/24/18 02:10 sulfamethoxazole Allergy Rash Verified 01/24/18 02:10 [From Bactrim] trimethoprim [From Bactrim] Allergy Rash Verified 01/24/18 02:10 cephalexin [From Keflex] AdvReac See Verified 01/24/18 02:10 Comments levofloxacin [From Levaquin] AdvReac See Verified 01/24/18 02:10 Comments All systems ED: reviewed and negative except as stated. Review of Systems: As Per HPI Constitutional: Denies: fever, chills, weakness, weight change Eyes: Denies: eye pain, eye discharge, vision change ENT ED: Denies: ear pain, throat pain, dental pain, hearing loss, epistaxis, congestion, dysphagia Cardiovascular: Denies: chest pain, palpitations, dyspnea on exertion, edema, syncope Respiratory: Reports: as per HPI, dyspnea Gastrointestinal: Denies: abdominal pain, nausea, vomiting, diarrhea, constipation, hematemesis, melena, hematochezia Genitourinary: Denies: urgency, dysuria, frequency, hematuria Musculoskeletal: Denies: back pain, neck pain, arthralgia, myalgia Integumentary: Denies: rash, abrasion, lesions Neurological: Denies: headache, weakness, numbness, paresthesias, confusion, abnormal gait, vertigo Psychiatric: Denies: anxiety, depression, suicidal thoughts, homicidal thoughts, auditory hallucinations, visual hallucinations Endocrine: Denies: fatigue Hematological/Lymphatic: Denies: easy bleeding, easy bruising Allergic/Immunologic: Denies: facial swelling, urticaria Past Medical History - Past Medical History Attestation: Yes The following information was validated with the patient. Source: patient, nursing notes reviewed Medical history: Reports: aortic aneurysm, arthritis, atrial fibrillation, cardiomyopathy, CHF, COPD, GERD, hyperlipidemia, hypertension, kidney stones, osteoporosis, peripheral artery disease, renal disease, thyroid disease, valvular heart disease, other Surgical history: Reports: heart valve replacement, herniorrhaphy, vascular surgery Psychiatric history: Reports: anxiety - Social History Smoking Status: Never smoker Smokeless Tobacco Status: No Alcohol use: Reports: rarely Drug use: Reports: none Physical Exam - General Limitations: no limitations General appearance: alert, in no apparent distress - Head Head exam: atraumatic, normocephalic, normal inspection - Eye Eye exam: Present: normal appearance, PERRL, EOMI - ENT ENT exam: normal exam, normal oropharynx, mucous membranes moist - Neck Neck exam: Present: normal inspection, full ROM, trachea midline - Chest Chest inspection: Present: normal inspection, symmetric chest wall rise - Respiratory Respiratory exam: Present: wheezes (Fine bibasilar wheezes and rhonchi noted.) - Cardiovascular Cardiovascular exam: Present: regular rate, normal rhythm, normal heart sounds - Abdominal Exam Abdominal exam: Present: soft, Non-Tender. Absent: tenderness, distention, guarding, rebound, rigidity - Extremities Exam Extremities exam: Present: pedal edema - Back Exam Back exam: Present: normal inspection - Neurological Exam Neurological exam: Present: alert, oriented X3 - Psychiatric Psychiatric exam: Present: normal affect, normal mood - Skin Skin exam: Present: warm, dry, intact Course Vital Signs Temperature 97.8 F 01/27/18 14:56 Pulse Rate 76 01/27/18 14:56 Respiratory Rate 16 01/27/18 14:56 Blood Pressure 96/70 01/27/18 14:56 O2 Sat by Pulse Oximetry 92 01/27/18 14:56 Temperature 98.2 F 01/27/18 20:13 Pulse Rate 86 01/27/18 20:13 Respiratory Rate 18 01/27/18 20:13 Blood Pressure 132/68 01/27/18 20:13 O2 Sat by Pulse Oximetry 99 01/27/18 20:13 Oxygen Delivery Oxygen Delivery Room Air Shortness of Breath/Dyspnea - [facility] Narrative Medical decision making narrative: I reviewed the patient's medication list Case was discussed with Dr. Mas's who has graciously accepted admission hospital - Differential Diagnosis Likely: congestive heart failure - Lab Data Lab results reviewed: Yes I reviewed the patient's lab results. Result diagrams: 01/27/18 16:09 01/27/18 16:09 Lab Results 01/27/18 01/27/18 01/27/18 Range/Units 16:09 16:09 16:09 WBC 5.5 (4.3-11.1) K/mcL RBC 3.47 L (4.19-5.50) M/mcL Hgb 8.8 L (12.9-16.9) g/dL Hct 30.1 L (37.5-50.1) % MCV 86.7 (83.0-100.0) fL MCH 25.4 L (28.0-33.3) pg MCHC 29.2 L (31.6-35.5) g/dL RDW 18.9 H (11.5-14.5) % Plt Count 189 (140-400) K/mcL MPV 11.5 (9.4-12.4) fL Immature Gran % 0.4 (0-4) % Seg Neutrophils % 68.1 % Lymphocytes % 17.2 % Monocytes % 10.9 % Eosinophils % 2.9 % Basophils % 0.5 % Neutrophils # 3.7 (1.6-8.9) K/mcL Lymphocytes # 0.9 (0.6-4.6) K/mcL Monocytes # 0.6 (0.0-1.3) K/mcL Eosinophils # 0.2 (0.0-0.6) K/mcL Basophils # 0.0 (0.0-0.2) K/mcL PT 32.6 H (9.4-12.1) Seconds INR 2.9 APTT 44.2 H (26.0-36.0) Seconds Sodium 140 (136-145) mEq/L Potassium 4.0 (3.5-5.1) mEq/L Chloride 103 (98-107) mEq/L Carbon Dioxide 29 (23-29) mEq/L BUN 57 H (8-23) mg/dL Creatinine 3.54 H (0.70-1.30) mg/dL Est GFR ( Amer) 20 L (> 60) Est GFR (Non-Af Amer) 17 L (> 60) BUN/Creatinine Ratio 16 (6-26) Glucose 87 (70-105) mg/dL Calculated Osmolality 305 H (280-300) Calcium 9.0 (8.6-10.3) mg/dL Total Bilirubin 0.5 (0.3-1.0) mg/dL AST 10 L (13-39) Units/L ALT 6 L (7-52) Units/L Alkaline Phosphatase 89 (34-104) Units/L Troponin I 0.04 H* (< 0.04) ng/mL B-Natriuretic Peptide (Less than 100) pg/mL Serum Total Protein 6.2 L (6.4-8.9) g/dL Albumin 3.1 L (3.5-5.7) g/dL Globulin 3.1 (2.4-3.5) g/dL Albumin/Globulin Ratio 1.0 L (1.1-2.2) 01/27/18 Range/Units 16:09 WBC (4.3-11.1) K/mcL RBC (4.19-5.50) M/mcL Hgb (12.9-16.9) g/dL Hct (37.5-50.1) % MCV (83.0-100.0) fL MCH (28.0-33.3) pg MCHC (31.6-35.5) g/dL RDW (11.5-14.5) % Plt Count (140-400) K/mcL MPV (9.4-12.4) fL Immature Gran % (0-4) % Seg Neutrophils % % Lymphocytes % % Monocytes % % Eosinophils % % Basophils % % Neutrophils # (1.6-8.9) K/mcL Lymphocytes # (0.6-4.6) K/mcL Monocytes # (0.0-1.3) K/mcL Eosinophils # (0.0-0.6) K/mcL Basophils # (0.0-0.2) K/mcL PT (9.4-12.1) Seconds INR APTT (26.0-36.0) Seconds Sodium (136-145) mEq/L Potassium (3.5-5.1) mEq/L Chloride (98-107) mEq/L Carbon Dioxide (23-29) mEq/L BUN (8-23) mg/dL Creatinine (0.70-1.30) mg/dL Est GFR ( Amer) (> 60) Est GFR (Non-Af Amer) (> 60) BUN/Creatinine Ratio (6-26) Glucose (70-105) mg/dL Calculated Osmolality (280-300) Calcium (8.6-10.3) mg/dL Total Bilirubin (0.3-1.0) mg/dL AST (13-39) Units/L ALT (7-52) Units/L Alkaline Phosphatase (34-104) Units/L Troponin I (< 0.04) ng/mL B-Natriuretic Peptide 3177 H (Less than 100) pg/mL Serum Total Protein (6.4-8.9) g/dL Albumin (3.5-5.7) g/dL Globulin (2.4-3.5) g/dL Albumin/Globulin Ratio (1.1-2.2) - Radiology Data Radiology results reviewed: Yes I reviewed the patient's radiology results. - EKG Data EKG attestation: Yes I reviewed and interpreted this EKG. EKG results narrative: EKG shows atrial fibrillation with occasional PVCs and a controlled rate. Ventricular rate is 83 bpm QRS duration 118 ms. QT interval 395 ms. QTc interval 435 ms. R axis of -86 degrees
[2018-01-27] MEDS ORDERED: 0.9 % Sodium Chloride 500 ML IVC SCH ×2 (15:30→17:58)
[2018-01-27 16:17] LABS: Basophils % 0.5 %; Eosinophils # 0.2 K/mcL (0.0-0.6); Eosinophils % 2.9 %; Hematocrit 30.1 % (37.5-50.1); Hemoglobin 8.8 g/dL (12.9-16.9); Immature Granulocytes % 0.4 % (0-4); Lymphocytes # 0.9 K/mcL (0.6-4.6); Lymphocytes % 17.2 %; Mean Corpuscular HGB Conc 29.2 g/dL (31.6-35.5); Mean Corpuscular Hemoglobin 25.4 pg (28.0-33.3); Mean Corpuscular Volume 86.7 fL (83.0-100.0); Mean Platelet Volume 11.5 fL (9.4-12.4); Monocytes # 0.6 K/mcL (0.0-1.3); Monocytes % 10.9 %; Neutrophils # 3.7 K/mcL (1.6-8.9); Platelet Count 189 K/mcL (140-400); Red Blood Count 3.47 M/mcL (4.19-5.50); Red Cell Distribution Width 18.9 % (11.5-14.5); Segmented Neutrophils % 68.1 %
[2018-01-27 16:25] LABS: INR 2.9; Prothrombin Time 32.6 Seconds (9.4-12.1)
[2018-01-27 16:27] LABS: Activated Partial Thrombo Time 44.2 Seconds (26.0-36.0)
[2018-01-27 16:32] LABS: Albumin 3.1 g/dL (3.5-5.7); Bilirubin,Total 0.5 mg/dL (0.3-1.0); Globulin 3.1 g/dL (2.4-3.5); Total Protein 6.2 g/dL (6.4-8.9)
[2018-01-27 16:43] LABS: Troponin I 0.04 ng/mL (< 0.04)
[2018-01-27] MEDS ORDERED: Furosemide 40 MG/4 ML VIAL IVP ONE (16:49)
[2018-01-27] MEDS ORDERED: Aspirin 81 MG TAB.CHEW PO STA (16:49)
[2018-01-27] MEDS ORDERED: *HR* OxyCODONE Immed Rel 5 MG TABLET PO PRN (17:58)
[2018-01-27] MEDS ORDERED: Ondansetron ODT 4 MG TAB.RAPDIS PO PRN (17:58)
[2018-01-27] MEDS ORDERED: Naloxone 0.4 MG/ML INJ IVP PRN (17:58)
[2018-01-27] MEDS ORDERED: (Ipratropium/Albuterol Sulfate [Combivent Respimat 20 IH PRN (17:58)
[2018-01-27] MEDS: Bumetanide 1 MG TABLET PO SCH (20:40)
[2018-01-27] MEDS ORDERED: Psyllium 1 PACKET POWD.PACK PO SCH (21:00)
[2018-01-27] MEDS ORDERED: Furosemide 40 MG/4 ML VIAL IVP SCH (21:00)
[2018-01-27] MEDS: Furosemide 40 MG/4 ML VIAL IVP SCH (21:48)
[2018-01-28] MEDS ORDERED: traZODone 50 MG TABLET PO PRN (01:34)
[2018-01-28 04:07] LABS: Basophils % 0.4 %; Eosinophils # 0.2 K/mcL (0.0-0.6); Eosinophils % 2.9 %; Hematocrit 30.9 % (37.5-50.1); Hemoglobin 9.1 g/dL (12.9-16.9); Immature Granulocytes % 0.4 % (0-4); Lymphocytes # 0.9 K/mcL (0.6-4.6); Lymphocytes % 17.1 %; Mean Corpuscular HGB Conc 29.4 g/dL (31.6-35.5); Mean Corpuscular Hemoglobin 25.5 pg (28.0-33.3); Mean Corpuscular Volume 86.6 fL (83.0-100.0); Mean Platelet Volume 10.5 fL (9.4-12.4); Monocytes # 0.6 K/mcL (0.0-1.3); Monocytes % 11.2 %; Neutrophils # 3.7 K/mcL (1.6-8.9); Platelet Count 171 K/mcL (140-400); Red Blood Count 3.57 M/mcL (4.19-5.50); Red Cell Distribution Width 18.8 % (11.5-14.5)
[2018-01-28 04:20] LABS: Anisocytosis 1+ (Not Present); Platelet Estimate Normal (Normal)
[2018-01-28 04:23] LABS: Calcium 8.4 mg/dL (8.6-10.3)
[2018-01-28] MEDS: Bumetanide 1 MG TABLET PO SCH (05:45)
[2018-01-28] MEDS ORDERED: Finasteride 5 MG TABLET PO SCH (09:00)
[2018-01-28] MEDS ORDERED: Spironolactone 25 MG TABLET PO SCH (09:00)
[2018-01-28] MEDS ORDERED: Metoprolol XL (24 HR) Succ 50 MG TAB.ER.24H PO SCH (09:00)
[2018-01-28] MEDS ORDERED: Aspirin Enteric Coated 81 MG Tablet PO SCH (09:00)
[2018-01-28] MEDS: Furosemide 40 MG/4 ML VIAL IVP SCH ×2 (09:04→16:11)
[2018-01-28 11:16] VITALS: BP 131/85
--- NOTE | 2018-01-28 13:04 | Internal Med History&Physical ---
Date of Encounter: 01/28/18 Time of Encounter: 13:02 Assessment and Plan (1) Renal failure Current visit: Yes Status: Chronic Creatinine 3.35. Will follow closely. Discussed with Dr. Mas. Patient to transfer to [place]. Qualifiers: Renal failure chronicity: chronic Chronic kidney disease stage: unspecified stage Qualified Code(s): N18.9 - Chronic kidney disease, unspecified (2) Colon cancer Current visit: Yes Status: Acute Follow-up with oncology as scheduled. Qualifiers: Colon location: unspecified part of colon Qualified Code(s): C18.9 - Malignant neoplasm of colon, unspecified (3) Atrial fibrillation Current visit: Yes Status: Chronic Rate and rhythm controlled. Continue Coumadin. Will follow INR. Qualifiers: Atrial fibrillation type: chronic Qualified Code(s): I48.2 - Chronic atrial fibrillation (4) Acute on chronic systolic (congestive) heart failure Current visit: Yes Status: Acute Continue diuretics. Discussed with Dr. Mas. Patient to transfer to [facility]. Internal Medicine - H&P: HPI Admitted From: Emergency Dept Plans for Post Hospital Care: Home History of present illness: Mr. Mitchell is a 77 year old male admitted for observation after resenting to the emergency room with increased shortness of breath and bilateral lower extremity edema. was seen Friday and recommended to be admitted to the hospital because of congestive heart failure. He declined. Patient was seen at the cancer center yesterday. Has: cancer and is scheduled for a pet scan as outpatient. After leaving appointment. Patient presented to the emergency room to be admitted to hospital. Patient denies fever, chills, nausea vomiting or diarrhea. Denies chest pain. Did have recent abdominal surgery from a bowel movement resection. 12/10/2017. History of a fib, taking Coumadin. History of chronic renal failure, CAD, BPH and CHF. Past Med Surg Social Fam HX - Past Medical History Medical history: aortic aneurysm, arthritis, atrial fibrillation, cardiomyopat hy, CHF, COPD, GERD, hyperlipidemia, hypertension, kidney stones, osteoporosis, peripheral artery disease, renal disease, thyroid disease, valvular heart disease, other Additional medical history: SPINAL STENOSIS Psychiatric history: anxiety - Past Surgical History Surgical History: heart valve replacement, herniorrhaphy, vascular surgery Additional surgical history: Umbilical hernia repair. aortic anuerysm repair. mitral valve replacement - Social History Smoking Status: Never smoker Smokeless Tobacco Status: No Alcohol use: rarely Drug use: none - Family History Daughter Adopted: No Family Member Ethnicity: Non- Living Status: Still Living Hx Family Cardiac Disorders: No Hx Family Respiratory Disorders: No Hx Family Cancer: No Hx Family GI Disorders: No Hx Family Endocrine Disorder: No Hx Family Neuromuscular Disorders: No Hx Family Neurologic Disorders: No Hx Family HEENT Disorders: No Hx Family Autoimmune Disorders: No Mother Adopted: No Living Status: Age at : 99 Hx Family Cardiac Disorders: No Hx Family Respiratory Disorders: No Hx Family Cancer: No Hx Family GI Disorders: Yes (bleeding ulcer) Hx Family Endocrine Disorder: No Hx Family Neuromuscular Disorders: No Hx Family Neurologic Disorders: No Hx Family HEENT Disorders: No Hx Family Autoimmune Disorders: No Father Adopted: No Living Status: Age at : 79 Cause of : Emphysema Hx Family Cardiac Disorders: No Hx Family Respiratory Disorders: Yes (Emphysema) Hx Family Cancer: No Hx Family GI Disorders: No Hx Family Endocrine Disorder: No Hx Family Neuromuscular Disorders: No Hx Family Neurologic Disorders: No Hx Family HEENT Disorders: No Hx Family Autoimmune Disorders: No Sister Adopted: No Living Status: Cause of : Pneumonia Hx Family Cardiac Disorders: No Hx Family Respiratory Disorders: Yes (pneumonia) Hx Family Cancer: No Hx Family GI Disorders: No Hx Family Endocrine Disorder: No Hx Family Neuromuscular Disorders: No Hx Family Neurologic Disorders: No Hx Family HEENT Disorders: No Hx Family Autoimmune Disorders: No Internal Medicine - H&P: Meds Montelukast [Singulair] 10 mg PO HS 12/27/16 [History] Aspirin Enteric Coated [Aspirin EC] 81 mg PO DAILY tablet. 12/29/16 [Rx] Finasteride [Proscar] 5 mg PO DAILY 12/12/17 [History] Tamsulosin [Flomax] 0.4 mg PO DAILY 12/13/17 [History] Ipratropium/Albuterol Sulfate [Combivent Respimat 20-100 Mcg] 1 puff IH DAILY PRN 12/30/17 [History] Oxycodone HCl [Roxybond] 5 mg PO Q4H PRN 12/30/17 [History] Spironolactone [Aldactone] 25 mg PO DAILY 12/30/17 [History] Bumetanide [Bumex] 0.5 mg PO Q12HR 01/24/18 [History] Ondansetron [Zofran] 4 mg PO Q8HR PRN #10 tablet 01/24/18 [Rx] Metoprolol XL (24 HR) Succ [Toprol Xl] 50 mg PO DAILY 01/27/18 [History] Warfarin [Coumadin] 2.5 mg PO DAILY 01/27/18 [History] Besifloxacin HCl [Besivance] 1 drop OP BID 01/28/18 [History] Bromfenac Sodium [Prolensa] 1 drop OP BID 01/28/18 [History] Difluprednate [Durezol] 1 drop OP BID 01/28/18 [History] Potassium Citrate [Urocit-K] 10 meq PO BID 01/28/18 [History] Allergy/AdvReac Type Severity Reaction Status Date / Time Amoxicillin Allergy Difficulty Verified 01/24/18 02:10 Breathing metronidazole [From Flagyl] Allergy Rash Verified 01/24/18 02:10 sulfamethoxazole Allergy Rash Verified 01/24/18 02:10 [From Bactrim] trimethoprim [From Bactrim] Allergy Rash Verified 01/24/18 02:10 cephalexin [From Keflex] AdvReac See Verified 01/24/18 02:10 Comments levofloxacin [From Levaquin] AdvReac See Verified 01/24/18 02:10 Comments All Systems PM: A 10-system review of systems was performed and is negative for pertinent findings except as documented above in the HPI. - Constitutional Constitutional: no chills, no fever(s), no night sweats - EENT Eyes: no change in vision, no discharge, no pain, no photophobia Ears: no ear discharge, no ear pain, no tinnitus Nose, mouth and throat: no dysphagia, no nasal discharge, no neck pain, no sore throat - Cardiovascular Cardiovascular ROS IM: no chest pain, no diaphoresis, no dyspnea, no lightheadedness, no palpitations, no syncope - Respiratory Respiratory: no cough, no dyspnea, no wheezing, no excessive phlegm production - Gastrointestinal Gastrointestinal: no abdominal pain, no diarrhea, no hematemesis, no hematochezia, no melena, no nausea, no vomiting - Musculoskeletal Musculoskeletal ROS IM: no numbness, no tingling - Integumentary Integumentary IM: no rash, no unusual bruising - Neurological Neurological ROS: no confusion, no convulsions, no focal weakness, no numbness, no tingling, no tremor(s) - Hematologic/Lymphatic Hematologic/Lymphatic: no easy bruising - Constitutional Vitals: Temp Pulse Resp BP Pulse Ox 98.6 F 82 16 131/85 100 01/28/18 11:14 01/28/18 11:14 01/28/18 11:14 01/28/18 11:14 01/28/18 11:14 General appearance: Present: cooperative, A&O X 3, pleasant, no acute distress, answers questions appropriately - Head Head exam: Present: atraumatic, normocephalic - Eye Eye exam: Present: PERRL, conjuntiva pink, sclera anicteric Pupils: Present: PERRL - Neck Neck exam general surgery: Present: supple, trachea midline. Absent: lymphadenopathy - Respiratory Respiratory exam: Absent: accessory muscle use, rales, rhonchi, wheezes Additional comments: Fine crackles to bilateral basis. - Cardiovascular Cardiovascular exam: Present: irregular rhythm, +S1, +S2. Absent: diastolic murmur, gallop, rubs, systolic murmur - GI/Abdominal GI/Abdominal exam: Present: soft, no peritoneal signs. Absent: distended, tende rness Additional comments: Abdominal distention with hyperactive bowel sounds. - Extremities Exam Extremities exam: Present: warm, radial pulses palpable and symmetrical. Absent: calf tenderness, cyanotic, pedal edema Additional comments: 1+ pitting edema bilateral lower extremities. - Neurological Exam Neurological exam: Present: CN II-XII intact, oriented X3, no focal deficits. Absent: pronater drift, facial droop, speech deficit - Skin Skin exam: Present: dry, intact Additional comments: Large purple bruise to left forearm. Internal Med - H&P Results - Labs CBC & Chem 7: 01/28/18 04:01 01/28/18 04:01 Labs: Short CBC 01/27/18 01/28/18 Range/Units 16:09 04:01 WBC 5.5 5.4 (4.3-11.1) K/mcL Hgb 8.8 L 9.1 L (12.9-16.9) g/dL Hct 30.1 L 30.9 L (37.5-50.1) % Plt Count 189 171 (140-400) K/mcL Neutrophils # 3.7 3.7 (1.6-8.9) K/mcL BMP 01/27/18 01/28/18 16:09 04:01 Sodium 140 142 Potassium 4.0 4.0 Chloride 103 105 Carbon Dioxide 29 30 H BUN 57 H 54 H Creatinine 3.54 H 3.35 H Glucose 87 101 Calcium 9.0 8.4 L Cardiac Enzymes 01/27/18 01/27/18 01/28/18 Range/Units 16:09 22:01 04:01 Troponin I 0.04 H* 0.04 H* 0.05 H* (< 0.04) ng/mL 01/28/18 Range/Units 10:15 Troponin I 0.04 H* (< 0.04) ng/mL Liver Function 01/27/18 Range/Units 16:09 Total Bilirubin 0.5 (0.3-1.0) mg/dL AST 10 L (13-39) Units/L ALT 6 L (7-52) Units/L Alkaline Phosphatase 89 (34-104) Units/L Albumin 3.1 L (3.5-5.7) g/dL - Impressions ITS Impressions Chest X-Ray 01/27/18 15:25 IMPRESSION: 1. Stable bibasilar atelectasis with moderate bilateral effusions. 2. Mild pulmonary edema, improved from the prior study. 3. Cardiomegaly. D/ / 01/27/2018 15:58:26 Emerita Sidhu MD / consuelo Interpreting Provider: Emerita Sidhu MD Chest X-Ray 01/28/18 07:00 IMPRESSION: Stable chest radiograph with pulmonary vascular congestion and bibasilar atelectasis, pneumonia, and likely pleural effusions. Short-term follow-up could be helpful for further evaluation. D/ / [place] / [place] Interpreting Provider: [place]
--- NOTE | 2018-01-28 15:54 | Electrocardiograph Report ---
[address] [place] [address] Test Date: 2018-01-27 Pat Name: Tarun Mitchell Department: 2000 Room: 112 Gender: M Gallery Assistant: : 1940 Requested By: Javid Call Order Number: [id number] Reading MD: Valdo Ortega Measurements Intervals [place] Rate: 83 P: [place]: 0 QRS: -86 QRSD: 118 T: 121 QT: 395 QTc: 435 Interpretive Statements ATRIAL FIBRILLATION WITH ABERRANT CONDUCTION OR VENTRICULAR PREMATURE COMPLEXES POSSIBLE ANTERIOR MYOCARDIAL INFARCTION, PROBABLY OLD INFERIOR MYOCARDIAL INFARCTION, OF INDETERMINATE AGE MODERATE T-WAVE ABNORMALITY, CONSIDER LATERAL ISCHEMIA Electronically Signed On 01-28-2018 15:53:07 EST by Valdo Ortega
[2018-01-28] MEDS ORDERED: Warfarin perPT PO PRN (18:00)
[2018-01-28] MEDS ORDERED: *HR* Warfarin 2.5 MG TABLET PO SCH (18:00)
--- NOTE | 2018-01-30 18:12 | Internal Med History&Physical ---
Date of Encounter: 01/27/18 Time of Encounter: 16:00 Internal Medicine - H&P: HPI Chief complaint: SOB History of present illness: Mr. Mitchell is a 77 year old male who presented to ED with sob and increased peripheral dependant edema. Says has to sit up in chair to breathe well. He stated he was recently discharged from [place] after a heart attack. He says he is being treated for CHF. He denies chest pain. He states he has had sob and edema since november. He says it is worse now since yesterday and is making it difficult for him to get out of chair at home or use his walker. He notes in Nov 2017 he went to [facility] in [place] and had surgery for SBO he says they told him there was biopsy evidence of colon cancer in his lymph nodes. he says he is due to see oncology soon for evaluation of possible metastasis. He thinks he is due for a pet scan. In ED he was found to need 2 L NC and to have increased creatinine to 3.5. HE has hx of reduced LVEF. He has had previous diagnosis of severe cardiomyopathy with ejection fraction of 6-10% (echocardiogram from November 2017). Pt states in past he has refused cardiac catheterization and does not think he wants one now. He had an ICD inserted in 2017. He does have stage IV chronic kidney disease. He has hx also of htn, a fib, glaucoma, hypothyroid, and copd. PAST MEDICAL HX: The patient has had multiple medical problems. They include mentioned above CVA cardiomyopathy (ejection fraction of 6-10%), atrial fibrillation and CKD stage IV. He also has arthritis and BPH. heart valve replaced. Hernia repair ICD insertion (2016). REVIEW OF SYSTEMS: All 14 organ systems were reviewed by me with the patient. Positive and pertinent negative findings are listed above. The rest of organ systems is negative. PHYSICAL EXAM: Skin: thin and dry large nontender echymosis left arm soft ( he is left handed ) . Eyes: Sclera is white. There is no discharge from eyes. ENMT: Oral/pharyngeal mucosa is normal in appearance. There is no discharge from nose or ears. Respiratory: soft crackles and wheezes bilaterally. CV: Heart is irregular trace murmur. GI: Abdomen is flat and soft with no palpable mass : There is no tenderness in patient's flanks bilaterally. Neuro exam: He has good strength in upper and lower extremities. He has normal eye movements. Psychiatric: He has normal affect. His thought process is appropriate but slow ADDITIONAL DATA: His chest x-ray shows pulmonary congestion. he has anemia chronic Hemoglobin is 9.1 he is on coumadin Pro time INR is 2.9. Creatinine is 3.35 with GFR of 18. A/P: Acute on chronic systolic heart failure will use IV lasix will monitor weight and I/O consider fluid restriction ( he is not taking po very well today ) NC oxygen duonebs monitor repeat labs check vitamin levels continue current medications including coumadin other plans as per orders Past Med Surg Social Fam HX - Past Medical History Medical history: aortic aneurysm, arthritis, atrial fibrillation, cardiomyopathy, CHF, COPD, GERD, hyperlipidemia, hypertension, kidney stones, osteoporosis, peripheral artery disease, renal disease, thyroid disease, valvular heart disease, other Additional medical history: SPINAL STENOSIS Psychiatric history: anxiety - Past Surgical History Surgical History: heart valve replacement, herniorrhaphy, vascular surgery Additional surgical history: Umbilical hernia repair. aortic anuerysm repair 1994. mitral valve replacement 2010 - Social History Smoking Status: Never smoker ETOH - denies Mother Living Status: Father Adopted: No Living Status: - copd Montelukast [Singulair] 10 mg PO HS 12/27/16 [History] Aspirin Enteric Coated [Aspirin EC] 81 mg PO DAILY tablet. 12/29/16 [Rx] Finasteride [Proscar] 5 mg PO DAILY 12/12/17 [History] Tamsulosin [Flomax] 0.4 mg PO DAILY 12/13/17 [History] Ipratropium/Albuterol Sulfate [Combivent Respimat 20-100 Mcg] 1 puff IH DAILY PRN 12/30/17 [History] Oxycodone HCl [Roxybond] 5 mg PO Q4H PRN 12/30/17 [History] Spironolactone [Aldactone] 25 mg PO DAILY 12/30/17 [History] Bumetanide [Bumex] 0.5 mg PO Q12HR 01/24/18 [History] Ondansetron [Zofran] 4 mg PO Q8HR PRN #10 tablet 01/24/18 [Rx] Metoprolol XL (24 HR) Succ [Toprol Xl] 50 mg PO DAILY 01/27/18 [History] Warfarin [Coumadin] 2.5 mg PO DAILY 01/27/18 [History] Besifloxacin HCl [Besivance] 1 drop OP BID 01/28/18 [History] Bromfenac Sodium [Prolensa] 1 drop OP BID 01/28/18 [History] Difluprednate [Durezol] 1 drop OP BID 01/28/18 [History] Potassium Citrate [Urocit-K] 10 meq PO BID 01/28/18 [History] Allergy/AdvReac Type Severity Reaction Status Date / Time Amoxicillin Allergy Difficulty Verified 01/24/18 02:10 Breathing metronidazole [From Flagyl] Allergy Rash Verified 01/24/18 02:10 sulfamethoxazole Allergy Rash Verified 01/24/18 02:10 [From Bactrim] trimethoprim [From Bactrim] Allergy Rash Verified 01/24/18 02:10 cephalexin [From Keflex] AdvReac See Verified 01/24/18 02:10 Comments levofloxacin [From Levaquin] AdvReac See Verified 01/24/18 02:10 Comments Past Med Surg Social Fam HX - Past Medical History Medical history: aortic aneurysm, arthritis, atrial fibrillation, car diomyopathy, CHF, COPD, GERD, hyperlipidemia, hypertension, kidney stones, osteoporosis, peripheral artery disease, renal disease, thyroid disease, valvular heart disease, other Additional medical history: SPINAL STENOSIS Psychiatric history: anxiety - Past Surgical History Surgical History: heart valve replacement, herniorrhaphy, vascular surgery Additional surgical history: Umbilical hernia repair. aortic anuerysm repair. mitral valve replacement - Social History Smoking Status: Never smoker Smokeless Tobacco Status: No Alcohol use: rarely Drug use: none - Family History Daughter Adopted: No Family Member Ethnicity: Non- Living Status: Still Living Hx Family Cardiac Disorders: No Hx Family Respiratory Disorders: No Hx Family Cancer: No Hx Family GI Disorders: No Hx Family Endocrine Disorder: No Hx Family Neuromuscular Disorders: No Hx Family Neurologic Disorders: No Hx Family HEENT Disorders: No Hx Family Autoimmune Disorders: No Mother Adopted: No Living Status: Age at : 99 Hx Family Cardiac Disorders: No Hx Family Respiratory Disorders: No Hx Family Cancer: No Hx Family GI Disorders: Yes (bleeding ulcer) Hx Family Endocrine Disorder: No Hx Family Neuromuscular Disorders: No Hx Family Neurologic Disorders: No Hx Family HEENT Disorders: No Hx Family Autoimmune Disorders: No Father Adopted: No Living Status: Age at : 77 Cause of : Emphysema Hx Family Cardiac Disorders: No Hx Family Respiratory Disorders: Yes (Emphysema) Hx Family Cancer: No Hx Family GI Disorders: No Hx Family Endocrine Disorder: No Hx Family Neuromuscular Disorders: No Hx Family Neurologic Disorders: No Hx Family HEENT Disorders: No Hx Family Autoimmune Disorders: No Sister Adopted: No Living Status: Cause of : Pneumonia Hx Family Cardiac Disorders: No Hx Family Respiratory Disorders: Yes (pneumonia) Hx Family Cancer: No Hx Family GI Disorders: No Hx Family Endocrine Disorder: No Hx Family Neuromuscular Disorders: No Hx Family Neurologic Disorders: No Hx Family HEENT Disorders: No Hx Family Autoimmune Disorders: No Internal Medicine - H&P: Meds Montelukast [Singulair] 10 mg PO HS 12/27/16 [History] Aspirin Enteric Coated [Aspirin EC] 81 mg PO DAILY tablet. 12/29/16 [Rx] Finasteride [Proscar] 5 mg PO DAILY 12/12/17 [History] Tamsulosin [Flomax] 0.4 mg PO DAILY 12/13/17 [History] Ipratropium/Albuterol Sulfate [Combivent Respimat 20-100 Mcg] 1 puff IH DAILY PRN 12/30/17 [History] Oxycodone HCl [Roxybond] 5 mg PO Q4H PRN 12/30/17 [History] Spironolactone [Aldactone] 25 mg PO DAILY 12/30/17 [History] Bumetanide [Bumex] 0.5 mg PO Q12HR 01/24/18 [History] Ondansetron [Zofran] 4 mg PO Q8HR PRN #10 tablet 01/24/18 [Rx] Metoprolol XL (24 HR) Succ [Toprol Xl] 50 mg PO DAILY 01/27/18 [History] Warfarin [Coumadin] 2.5 mg PO DAILY 01/27/18 [History] Besifloxacin HCl [Besivance] 1 drop OP BID 01/28/18 [History] Bromfenac Sodium [Prolensa] 1 drop OP BID 01/28/18 [History] Difluprednate [Durezol] 1 drop OP BID 01/28/18 [History] Potassium Citrate [Urocit-K] 10 meq PO BID 01/28/18 [History] Allergy/AdvReac Type Severity Reaction Status Date / Time Amoxicillin Allergy Difficulty Verified 01/24/18 02:10 Breathing metronidazole [From Flagyl] Allergy Rash Verified 01/24/18 02:10 sulfamethoxazole Allergy Rash Verified 01/24/18 02:10 [From Bactrim] trimethoprim [From Bactrim] Allergy Rash Verified 01/24/18 02:10 cephalexin [From Keflex] AdvReac See Verified 01/24/18 02:10 Comments levofloxacin [From Levaquin] AdvReac See Verified 01/24/18 02:10 Comments All Systems PM: A 10-system review of systems was performed and is negative for pertinent findings except as documented above in the HPI. - Constitutional Vitals: Temp Pulse Resp BP Pulse Ox 98.6 F 82 16 131/85 100 01/28/18 11:14 01/28/18 11:14 01/28/18 11:14 01/28/18 11:14 01/28/18 11:14 General appearance: Present: cooperative, A&O X 3, pleasant, no acute distress, answers questions appropriately Internal Med - H&P Results - Labs CBC & Chem 7: 01/28/18 04:01 01/28/18 04:01 - Impressions ITS Impressions Chest X-Ray 01/27/18 15:25 IMPRESSION: 1. Stable bibasilar atelectasis with moderate bilateral effusions. 2. Mild pulmonary edema, improved from the prior study. 3. Cardiomegaly. D/ : / 01/27/2018 15:58:26 Emerita Sidhu MD / consuelo Interpreting Provider: Emerita Sidhu MD Chest X-Ray 01/28/18 07:00 IMPRESSION: Stable chest radiograph with pulmonary vascular congestion and bibasilar atelectasis, pneumonia, and likely pleural effusions. Short-term follow-up could be helpful for further evaluation. D/ / [place] / [place] Interpreting Provider: [place]
--- NOTE | 2018-01-30 18:21 | Discharge Summary ---
Date of Encounter: 01/28/18 Time of Encounter: 14:30 Hospital course: Mr. Mitchell is a 77 year old male who was admit to observation yesterday for increased sob and increased peripheral dependant edema, with difficulty laying flat and chair to breathe well. He stated he was recently discharged from [facility] after a heart attack and was being treated for CHF. He denied chest pain. He states he has had sob and edema since november. Nov 2017 he went to [facility] in [place] and had surgery for SBO and there found biopsy evidence of colon cancer in his lymph nodes. he says he is due to see oncology soon for evaluation of possible metastasis. while here he needed 2 L NC and to have increased creatinine to 3.5. 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 Pt states in past he has refused cardiac catheterization . he has ICD inserted in 2017. His coumadin is therapeutic. He does have stage IV chronic kidney disease. creatitine remained stable. He has a fib and rate remained stable. He did not improve with lasix. It was decided that he would need transfer back to [place]. He was transported in stable condition. PAST MEDICAL HX: The patient has had multiple medical problems. They include mentioned above CVA cardiomyopathy (ejection fraction of 6-10%), atrial fibrillation and CKD stage IV. He also has arthritis and BPH. heart valve replaced. Hernia repair ICD insertion (2016). . PHYSICAL EXAM: Skin: thin and dry large nontender echymosis left arm soft ( he is left handed ) . Eyes: Sclera is white. There is no discharge from eyes. ENMT: Oral/pharyngeal mucosa is normal in appearance. There is no discharge from nose or ears. Respiratory: soft crackles and wheezes bilaterally. CV: Heart is irregular trace murmur. GI: Abdomen is flat and soft with no palpable mass : There is no tenderness in patient's flanks bilaterally. Neuro exam: He has good strength in upper and lower extremities. He has normal eye movements. Psychiatric: He has normal affect. His thought process is appropriate but slow - Past Medical History Medical history: aortic aneurysm, arthritis, atrial fibrillation, cardiomyopathy, CHF, COPD, GERD, hyperlipidemia, hypertension, kidney stones, osteoporosis, peripheral artery disease, renal disease, thyroid disease, valvular heart disease, other Additional medical history: SPINAL STENOSIS Psychiatric history: anxiety - Past Surgical History Surgical History: heart valve replacement, herniorrhaphy, vascular surgery Additional surgical history: Umbilical hernia repair. aortic anuerysm repair 1994. mitral valve replacement 2010 - Social History Smoking Status: Never smoker ETOH - denies Montelukast [Singulair] 10 mg PO HS 12/27/16 [History] Aspirin Enteric Coated [Aspirin EC] 81 mg PO DAILY tablet. 12/29/16 [Rx] Finasteride [Proscar] 5 mg PO DAILY 12/12/17 [History] Tamsulosin [Flomax] 0.4 mg PO DAILY 12/13/17 [History] Ipratropium/Albuterol Sulfate [Combivent Respimat 20-100 Mcg] 1 puff IH DAILY PRN 12/30/17 [History] Oxycodone HCl [Roxybond] 5 mg PO Q4H PRN 12/30/17 [History] Spironolactone [Aldactone] 25 mg PO DAILY 12/30/17 [History] Bumetanide [Bumex] 0.5 mg PO Q12HR 01/24/18 [History] Ondansetron [Zofran] 4 mg PO Q8HR PRN #10 tablet 01/24/18 [Rx] Metoprolol XL (24 HR) Succ [Toprol Xl] 50 mg PO DAILY 01/27/18 [History] Warfarin [Coumadin] 2.5 mg PO DAILY 01/27/18 [History] Besifloxacin HCl [Besivance] 1 drop OP BID 01/28/18 [History] Bromfenac Sodium [Prolensa] 1 drop OP BID 01/28/18 [History] Difluprednate [Durezol] 1 drop OP BID 01/28/18 [History] Potassium Citrate [Urocit-K] 10 meq PO BID 01/28/18 [History] Allergy/AdvReac Type Severity Reaction Status Date / Time Amoxicillin Allergy Difficulty Verified 01/24/18 02:10 Breathing metronidazole [From Flagyl] Allergy Rash Verified 01/24/18 02:10 sulfamethoxazole Allergy Rash Verified 01/24/18 02:10 [From Bactrim] trimethoprim [From Bactrim] Allergy Rash Verified 01/24/18 02:10 cephalexin [From Keflex] AdvReac See Verified 01/24/18 02:10 Comments levofloxacin [From Levaquin] AdvReac See Verified 01/24/18 02:10 Comments medications Montelukast [Singulair] 10 mg PO HS 12/27/16 [History] Aspirin Enteric Coated [Aspirin EC] 81 mg PO DAILY tablet. 12/29/16 [Rx] Finasteride [Proscar] 5 mg PO DAILY 12/12/17 [History] Tamsulosin [Flomax] 0.4 mg PO DAILY 12/13/17 [History] Ipratropium/Albuterol Sulfate [Combivent Respimat 20-100 Mcg] 1 puff IH DAILY PRN 12/30/17 [History] Oxycodone HCl [Roxybond] 5 mg PO Q4H PRN 12/30/17 [History] Spironolactone [Aldactone] 25 mg PO DAILY 12/30/17 [History] Bumetanide [Bumex] 0.5 mg PO Q12HR 01/24/18 [History] Ondansetron [Zofran] 4 mg PO Q8HR PRN #10 tablet 01/24/18 [Rx] Metoprolol XL (24 HR) Succ [Toprol Xl] 50 mg PO DAILY 01/27/18 [History] Warfarin [Coumadin] 2.5 mg PO DAILY 01/27/18 [History] Besifloxacin HCl [Besivance] 1 drop OP BID 01/28/18 [History] Bromfenac Sodium [Prolensa] 1 drop OP BID 01/28/18 [History] Difluprednate [Durezol] 1 drop OP BID 01/28/18 [History] Potassium Citrate [Urocit-K] 10 meq PO BID 01/28/18 [History] - Time Spent with Patient Total time spent providing and/or coordinating discharge services: - Discharge Medications Home Medications: Montelukast [Singulair] 10 mg PO HS 12/27/16 [History] Aspirin Enteric Coated [Aspirin EC] 81 mg PO DAILY tablet. 12/29/16 [Rx] Finasteride [Proscar] 5 mg PO DAILY 12/12/17 [History] Tamsulosin [Flomax] 0.4 mg PO DAILY 12/13/17 [History] Ipratropium/Albuterol Sulfate [Combivent Respimat 20-100 Mcg] 1 puff IH DAILY PRN 12/30/17 [History] Oxycodone HCl [Roxybond] 5 mg PO Q4H PRN 12/30/17 [History] Spironolactone [Aldactone] 25 mg PO DAILY 12/30/17 [History] Bumetanide [Bumex] 0.5 mg PO Q12HR 01/24/18 [History] Ondansetron [Zofran] 4 mg PO Q8HR PRN #10 tablet 01/24/18 [Rx] Metoprolol XL (24 HR) Succ [Toprol Xl] 50 mg PO DAILY 01/27/18 [History] Warfarin [Coumadin] 2.5 mg PO DAILY 01/27/18 [History] Besifloxacin HCl [Besivance] 1 drop OP BID 01/28/18 [History] Bromfenac Sodium [Prolensa] 1 drop OP BID 01/28/18 [History] Difluprednate [Durezol] 1 drop OP BID 01/28/18 [History] Potassium Citrate [Urocit-K] 10 meq PO BID 01/28/18 [History] Allergies/Adverse Reactions: Allergy/AdvReac Type Severity Reaction Status Date / Time Amoxicillin Allergy Difficulty Verified 01/24/18 02:10 Breathing metronidazole [From Flagyl] Allergy Rash Verified 01/24/18 02:10 sulfamethoxazole Allergy Rash Verified 01/24/18 02:10 [From Bactrim] trimethoprim [From Bactrim] Allergy Rash Verified 01/24/18 02:10 cephalexin [From Keflex] AdvReac See Verified 01/24/18 02:10 Comments levofloxacin [From Levaquin] AdvReac See Verified 01/24/18 02:10 Comments Date of admission: 01/27/18 17:29 Primary care physician: Marlon Mtot - Constitutional Vitals: Temp Pulse Resp BP Pulse Ox 98.6 F 82 16 131/85 100 01/28/18 11:14 01/28/18 11:14 01/28/18 11:14 01/28/18 11:14 01/28/18 11:14 General appearance: Present: cooperative, A&O X 3, pleasant, no acute distress, answers questions appropriately - Patient Status Disposition: Transfer Other Condition: Good - Discharge Instructions Follow Up With: Marlon Mott MD [Primary Care Provider] -
== END 2018-01-28 16:50 | disposition other institution (70) ==
LOC: INPGRE 14:38 → EMEROOGRE 14:38 → INPGRE 18:01
PROVIDERS: ADMIT Internal Medicine; ATTEND Internal Medicine

== ENCOUNTER 2020-01-16 03:50 | Inpatient (IN) ==
[2020-01-16] MEDS ORDERED: Furosemide 40 MG/4 ML VIAL IVP ONE (04:18)
[2020-01-16 04:27] LABS: Basophils % 0.2 %; Eosinophils # 0.1 K/mcL (0.0-0.6); Eosinophils % 1.4 %; Hematocrit 30.1 % (37.5-50.1); Immature Granulocytes % 0.5 % (0-4); Lymphocytes # 0.8 K/mcL (0.6-4.6); Lymphocytes % 19.5 %; Mean Corpuscular HGB Conc 29.9 g/dL (31.6-35.5); Mean Corpuscular Hemoglobin 29.1 pg (28.0-33.3); Mean Corpuscular Volume 97.4 fL (83.0-100.0); Mean Platelet Volume 11.8 fL (9.4-12.4); Monocytes # 0.5 K/mcL (0.0-1.3); Monocytes % 12.2 %; Neutrophils # 2.8 K/mcL (1.6-8.9); Red Blood Count 3.09 M/mcL (4.19-5.50); Red Cell Distribution Width 16.5 % (11.5-14.5); Segmented Neutrophils % 66.2 %; White Blood Count 4.3 K/mcL (4.3-11.1)
[2020-01-16 04:28] LABS: Platelet Count 90 K/mcL (140-400)
[2020-01-16] MEDS ORDERED: Norepinephrine 4 MG in 0.9 % Sodium Chloride 250 ML IVC SCH ×2 (04:30→06:55)
[2020-01-16 04:33] LABS: INR 3.3; Prothrombin Time 36.5 Seconds (9.4-12.1)
[2020-01-16 04:36] LABS: Activated Partial Thrombo Time 43.4 Seconds (26.0-36.0)
[2020-01-16 04:43] LABS: Albumin 3.2 g/dL (3.5-5.7); Albumin/Globulin Ratio 1.3 (1.1-2.2); Bilirubin,Direct 0.2 mg/dL (0.0-0.2); Bilirubin,Indirect 0.5 mg/dL (0.0-1.0); Bilirubin,Total 0.7 mg/dL (0.3-1.0); Calcium 8.6 mg/dL (8.6-10.3); Globulin 2.5 g/dL (2.4-3.5); Potassium 4.6 mEq/L (3.5-5.1); Total Protein 5.7 g/dL (6.4-8.9)
[2020-01-16 04:51] LABS: Troponin I 0.07 ng/mL (< 0.04)
[2020-01-16] MEDS ORDERED: *HR* OxyCODONE Immed Rel 5 MG TABLET PO PRN (06:55)
[2020-01-16] MEDS ORDERED: Naloxone 0.4 MG/ML INJ IVP PRN (06:55)
[2020-01-16] MEDS ORDERED: Acetaminophen 325 MG TABLET PO PRN (06:55)
[2020-01-16] MEDS ORDERED: Ondansetron 4 MG/2 ML VIAL IVP PRN (06:55)
[2020-01-16] MEDS ORDERED: Ipratropium 1 PUFF INHALER IH PRN (06:55)
[2020-01-16] MEDS ORDERED: *HR* Enoxaparin 30 MG/0.3 ML SYRINGE SQ SCH (07:00)
[2020-01-16] MEDS: Fluticasone Propionate Nasal 50 MCG/SPRAY BOTTLE NS SCH (09:03)
[2020-01-16] MEDS: Cyanocobalamin (B-12) 1,000 MCG TABLET PO SCH (09:03)
[2020-01-16] MEDS: Torsemide 20 MG TABLET PO SCH (11:21)
[2020-01-16] MEDS ORDERED: Furosemide 20 MG/2 ML VIAL IVP ONE (12:00)
[2020-01-16] MEDS: Furosemide 40 MG/4 ML VIAL IVP SCH (17:36)
[2020-01-16] MEDS: Albumin 25% 25gram/100mL 25 GM/100 ML IV.SOLN IVPB SCH (17:37)
[2020-01-16] MEDS ORDERED: Warfarin perPT PO PRN (18:00)
[2020-01-17] MEDS ORDERED: 0.9 % Sodium Chloride 500 ML IVC ONE ×3 (00:30→07:08)
[2020-01-17 05:18] LABS: Basophils % 0.6 %; Eosinophils % 1.2 %; Hematocrit 28.3 % (37.5-50.1); Hemoglobin 8.6 g/dL (12.9-16.9); Immature Granulocytes % 0.6 % (0-4); Lymphocytes # 0.6 K/mcL (0.6-4.6); Lymphocytes % 19.2 %; Mean Corpuscular HGB Conc 30.4 g/dL (31.6-35.5); Mean Corpuscular Hemoglobin 29.9 pg (28.0-33.3); Mean Corpuscular Volume 98.3 fL (83.0-100.0); Mean Platelet Volume 11.8 fL (9.4-12.4); Monocytes # 0.4 K/mcL (0.0-1.3); Monocytes % 10.8 %; Neutrophils # 2.2 K/mcL (1.6-8.9); Platelet Count 85 K/mcL (140-400); Red Blood Count 2.88 M/mcL (4.19-5.50); Red Cell Distribution Width 16.7 % (11.5-14.5); Segmented Neutrophils % 67.6 %; White Blood Count 3.3 K/mcL (4.3-11.1)
[2020-01-17 05:19] LABS: INR 2.6; Prothrombin Time 28.9 Seconds (9.4-12.1)
[2020-01-17] MEDS: Albumin 25% 25gram/100mL 25 GM/100 ML IV.SOLN IVPB SCH ×2 (05:21→20:35)
[2020-01-17 05:33] LABS: Albumin 3.1 g/dL (3.5-5.7); Albumin/Globulin Ratio 1.3 (1.1-2.2); Bilirubin,Total 0.6 mg/dL (0.3-1.0); Calcium 8.4 mg/dL (8.6-10.3); Globulin 2.3 g/dL (2.4-3.5); Potassium 4.5 mEq/L (3.5-5.1); Total Protein 5.4 g/dL (6.4-8.9)
[2020-01-17] MEDS: Cyanocobalamin (B-12) 1,000 MCG TABLET PO SCH (07:50)
[2020-01-17] MEDS: Furosemide 40 MG/4 ML VIAL IVP SCH ×2 (07:51→19:57)
[2020-01-17] MEDS: Torsemide 20 MG TABLET PO SCH (07:52)
[2020-01-17] MEDS: Fluticasone Propionate Nasal 50 MCG/SPRAY BOTTLE NS SCH (07:59)
[2020-01-17] MEDS ORDERED: *HR* Warfarin 2.5 MG TABLET PO ONE (18:00)
[2020-01-17 19:38] LABS: Calcium 8.9 mg/dL (8.6-10.3); Potassium 4.9 mEq/L (3.5-5.1)
[2020-01-17] MEDS: *HR* LORazepam 0.5 MG TABLET PO PRN (20:35)
[2020-01-18 05:27] LABS: Hematocrit 32.5 % (37.5-50.1); Hemoglobin 9.5 g/dL (12.9-16.9); Mean Corpuscular HGB Conc 29.2 g/dL (31.6-35.5); Mean Corpuscular Hemoglobin 29.3 pg (28.0-33.3); Mean Corpuscular Volume 100.3 fL (83.0-100.0); Mean Platelet Volume 11.6 fL (9.4-12.4); Platelet Count 106 K/mcL (140-400); Red Blood Count 3.24 M/mcL (4.19-5.50); Red Cell Distribution Width 16.9 % (11.5-14.5); White Blood Count 4.5 K/mcL (4.3-11.1)
[2020-01-18 05:30] LABS: INR 2.1; Prothrombin Time 23.7 Seconds (9.4-12.1)
[2020-01-18] MEDS: Albumin 25% 25gram/100mL 25 GM/100 ML IV.SOLN IVPB SCH ×2 (05:30→16:27)
[2020-01-18 05:36] LABS: Albumin 3.6 g/dL (3.5-5.7); Albumin/Globulin Ratio 1.7 (1.1-2.2); Bilirubin,Total 0.8 mg/dL (0.3-1.0); Calcium 8.8 mg/dL (8.6-10.3); Globulin 2.1 g/dL (2.4-3.5); Magnesium 2.3 mg/dL (1.6-2.6); Potassium 4.9 mEq/L (3.5-5.1); Total Protein 5.7 g/dL (6.4-8.9)
[2020-01-18] MEDS: Cyanocobalamin (B-12) 1,000 MCG TABLET PO SCH (08:04)
[2020-01-18] MEDS: Furosemide 40 MG/4 ML VIAL IVP SCH ×2 (08:07→17:55)
[2020-01-18] MEDS: Torsemide 20 MG TABLET PO SCH (08:09)
[2020-01-18] MEDS: Fluticasone Propionate Nasal 50 MCG/SPRAY BOTTLE NS SCH (08:09)
[2020-01-18] MEDS: *HR* LORazepam 0.5 MG TABLET PO PRN ×2 (10:43→23:29)
[2020-01-18] MEDS ORDERED: *HR* Warfarin 5 MG TABLET PO ONE (18:00)
[2020-01-18 18:53] VITALS: BP 69/48
[2020-01-19] MEDS: Albumin 25% 25gram/100mL 25 GM/100 ML IV.SOLN IVPB SCH ×2 (00:22→08:07)
[2020-01-19 05:27] LABS: INR 3.1; Prothrombin Time 34.3 Seconds (9.4-12.1)
[2020-01-19] MEDS: Cyanocobalamin (B-12) 1,000 MCG TABLET PO SCH (08:06)
[2020-01-19] MEDS: Furosemide 40 MG/4 ML VIAL IVP SCH (08:07)
[2020-01-19] MEDS: Torsemide 20 MG TABLET PO SCH (08:16)
[2020-01-19] MEDS: Fluticasone Propionate Nasal 50 MCG/SPRAY BOTTLE NS SCH (08:35)
== END 2020-01-19 10:09 | disposition hospice, home (50) | DRG 291 ==
LOC: EMEROOGRE 03:50 → INPGRE 06:48
PROVIDERS: ADMIT Family Medicine; ATTEND Family Medicine